=== PATIENT | female | born 1940 | race Caucasian/White ===

== ENCOUNTER 2017-01-07 15:22 | Inpatient (IN) | payer MEDICARE ==
[~2017-01-07] VITALS: Ht 165.1 cm; Wt 64.8 kg
[~2017-01-07 15:22] MED LIST: AMLO10TA5 PO; ASPI-653 PO; CALC-794 PO; CLOP75TA14 PO; COR625 PO; FOSD70 PO; HYDR25TA4 PO; LOSA100T29 PO; MULT-1007 PO; NITR0.4T SL; POTA20TA35 PO; RANI-5 PO; SMV40T PO
[2017-01-07 15:28] VITALS: BP 120/68; PULSE 96; RESP 20; O2SAT 97
--- NOTE | 2017-01-07 15:50 | ED.REPORT ---
HPI-General Illness Date of Service Jan 07, 2017 ED Provider: Nixon Feliciano MD A 76 year old female with a history of hyperlipidemia and severe CAD (2011) s/p stent placement presents to the ED with multiple medical complaints most notable for chest pain that began this afternoon. Per patient's family, the patient has been experiencing confusion, unsteady gait, asymmetrical smile, difficulty with speech and dysphasia for an unknown period of time. Patient and her family are difficult historians. The patient presents today with chest pain that began while she was sitting at [facility] but has since resolved. Nitro taken this afternoon provided mild relief for her pain. She is currently endorsing a headache. Patient reportedly takes a calcium supplement daily. Patient denies recent fever, chills, diarrhea, nausea, or vomiting 2011 Angioplasty revealed severe two vessel disease, 99+ stenosis of OM, 70%-80 % distal right coronary artery stenosis, and a normal EF. PTCA and stenting to the tight ostial first obtuse marginal branch lesion were successful. Nursing Notes Stated Complaint: CHEST PAIN, FELL, WEAK Chief Complaint: Chest Pain Nursing Notes Reviewed: Yes Allergies: Coded Allergies: TAPE (Verified Allergy, Severe, RASH,BLISTERS,SKIN PEELING, 01/26/12) codeine (Verified Allergy, Severe, 03/10/09) latex (Verified Allergy, Severe, ELASTIC - RASH, 01/26/12) varenicline tartrate (Verified Allergy, Severe, Hives, 01/26/12) Scheduled Amlodipine (Amlodipine) 10 Mg Tablet 10 MG PO DAILY Aspirin Chew (Aspirin Chew) 81 Mg Chew 81 MG PO DAILY Carvedilol (Carvedilol) 6.25 Mg Tablet 6.25 MG PO BID Clopidogrel (Clopidogrel) 75 Mg Tablet 75 MG PO DAILY Multivitamin (Multi Vitamin Daily) 1 Each Tablet 1 EACH PO DAILY Simvastatin (Simvastatin) 40 Mg Tablet 40 MG PO HS Miscellaneous Medications Calc/D3/Mag/Zn/Litigation Support Analyst/[place] (Calcium 600 mg Plus Vit D Tab) 1 Each Tablet 1 EACH PO Losartan Potassium (Losartan Potassium) 50 Mg Tablet 50 MG PO Nitroglycerin (Nitroglycerin) 0.3 Mg Tab.subl 0.3 MG SL General Time Seen by MD: 15:49 Chief Complaint Chest pain Hx Obtained From: Patient, Other family... Arrived By: Walk-in Sudden in Onset?: No Onset Occurred: 1 - 4 hours ago Symptom Duration: Intermittent Location: : Chest Quality: Painful Radiation: : Does not radiate Severity: Current: Moderate Severity: Maximum: Moderate Associated with: Reports: Chest pain, Off balance, Speech abnormal Pertinent Negative: Pt denies other symptoms Recent Healthcare: No recent doctor visit, No recent hospitalization Past Medical History Past Medical History Notes: Director Clinical Pharmacology: Dr. Ronnie Javier PCP: Dr. Joey Duran Past Medical History Hyperlipidemia Severe CAD Past Surgical History Cardiac stent placement (2011) Smoking History Current Every Day Smoker Social History Other Social History: Good social support, Local resident Ambulatory Status Independent Review of Systems Full Review of Systems Constitutional: Denies: Chills, Fever Cardiovascular: Reports: Chest pain Neurologic: Reports: Confusion, Focal weakness (facial droop ), Headache, Problem walking, Slurred speech, Unable to speak Complete sys rev & neg: except as marked. Physical Exam Vital Signs Vital Signs Date Time Temp Pulse Resp B/P Pulse Ox O2 Delivery O2 Flow Rate FiO2 01/07/17 18:45 36.8 92 20 165/69 95 Nasal Cannula 2 01/07/17 17:31 36.8 95 20 158/76 96 Nasal Cannula 2 01/07/17 15:28 36.6 96 20 120/68 97 Room Air Initial VS: Reviewed Head / Eyes: Atraumatic, Normocephalic, PERRL Neck: Supple, Non-tender, Full range of motion Extremities: Vascular intact, Neuro intact, No swelling, No tenderness Skin: Warm, Dry, No cyanosis Psychiatric: Mood/affect normal, Behavior normal, Normal thought content General/Constitutional: Awake, Alert, No acute distress Head / Eyes: Atraumatic, Normocephalic, PERRL Respiratory / Chest: Atraumatic, Breath sounds NL, Breath sounds = bilat, No respiratory distress Cardiovascular: Heart rate NL, Regular rhythm, No gallop, No rubs Heart Sounds / Murmur: Positive: Systolic murmur present.. (II/ - Right upper sternal border) Abdomen: Atraumatic, Soft, Non-tender, No guarding, No rebound, BS normoactive Neurologic: Oriented X3, No motor deficits, No sensory deficits, Reflexes equal bilat, Cerebellar NL No pronator drift Left facial asymmetry No difficulty with lower extremity elevation Interpretation & Diagnostics Lab Results Interpretation Result Diagram: 01/07/17 1610 01/07/17 1855 Test 01/07/17 16:10 White Blood Count 12.0th/mm3 (3.8-10.1) Red Blood Count 4.57mil/mm3 (3.90-5.20) Hemoglobin 13.7g/dL (12.0-15.6) Hematocrit 39.3% (35.0-46.0) Mean Corpuscular Volume 86.0fL (81-100) Mean Corpuscular Hemoglobin 30.0pg (27.0-35.0) Mean Corpuscular Hemoglobin Concent 34.9% (32.0-37.0) Red Cell Distribution Width 13.8% (12.3-15.4) Platelet Count 250bil/L (150-400) Neutrophils (%) (Auto) 79.6% (40-74) Lymphocytes (%) (Auto) 10.6% (14-46) Monocytes (%) (Auto) 9.0% (4-12) Eosinophils (%) (Auto) 0.4% (0-5) Basophils (%) (Auto) 0.2% (0-3) Blood Urea Nitrogen 23mg/dL (8-27) Creatinine 1.12mg/dL (0.57-1.00) Estimat Glomerular Filtration Rate 67mL/min (>59) Glucose Level 155mg/dL (60-99) Calcium Level 15.0mg/dL (8.5-10.1) Total Bilirubin 0.4mg/dL (0.0-1.2) Aspartate Amino Transf (AST/SGOT) 24U/L (0-50) Alanine Aminotransferase (ALT/SGPT) 12U/L (0-32) Alkaline Phosphatase 62U/L (25-165) Troponin T < 0.010ug/L (0.0-0.011) Total Protein 7.5g/dL (6.4-8.4) ECG Interpretation ECG Interpretation: Normal Sinus Rhythm Rate 89 bpm Multiple ventricular complexes Q waves in lead 3 ST elevation in 2 and 3 AVF without reciprocal changes Time: 16:06 Interpreted by: ED physician X-Ray Chest Interpretation Chest Xray Interpretation: IMPRESSION: Right basilar infiltrate may be secondary to pneumonitis and pneumonia. Dictated by: Delia Rosario M.D. on 01/07/2017 at 17:10 Interpretation / Wet Read by: Interpret - Radiologist CT Head Interpretation IMPRESSION: 1. No acute intracranial abnormalities. 2. Cerebral volume loss and chronic microvascular ischemic changes. Dictated by: Delia Rosario M.D. on 01/07/2017 at 16:51 Study: Head CT no contrast Interpretation / Wet Read by: Interpret - Radiologist Re-Eval/Medical Decision Med Decision/Clinical Course 68-year-old female presenting with some confusion and ill-defined weakness possibly chest pain. As an unexpected finding of critical hypercalcemia as well as a low magnesium and potassium. Was given a liter of saline in the emergency Department we also started with 2 g of magnesium and 20 meq of potassium. I will it on telemetry, she will be admitted to the hospitalist service. Time of Eval: 17:08 Re-Evaluation/Progress Note: Patient reports that she is currently feeling fatigued. Code status is discussed with the patient. She would like to be Full Code. Time of Eval: 17:20 Patient Status: Condition improved Re-Evaluation/Progress Note: Symptoms have improved upon She is informed of her current results and the intended treatment plan. All questions are addressed. She understands and agrees with the plan. Consultation : Referral / Consult Name: Ashwini Trammell MD Consulted With: Hospitalist Call Returned at: 17:28 Title Search Manager: Will see patient, Agrees with eval, Agrees with plan, Accepts admit Counseled Regarding: Diagnosis, Lab results, Need for admission Discharge & Departure Primary Impression: Hypercalcemia Additional Impressions: Hypomagnesemia Hypokalemia Disposition: ADMITTED TO HOSPITAL Discharge Condition All VS Reviewed: Yes Condition: Stable Referrals: Joey Duran DO (PCP) Ronnie Eaton MD Scribe Attestation Portions of this note were transcribed by Inez Carrero. I, Dr. Feliciano, personally performed the history, physical exam and medical decision-making; I reviewed and confirmed the accuracy of the information in the transcribed note. Signed by: Inez Carrero, 01/07/17. copies to: Ronnie Eaton MD; Joey Duran Donald L MD Jan 07, 2017 15:50 INEZ CARRERO Jan 07, 2017 15:55 Hypomagnesemia Disposition: ADMITTED TO HOSPITAL Discharge Condition All VS Reviewed: Yes Condition: Stable Referrals: Joey Duran DO (PCP) Ronnie Eaton MD Scribe Attestation Portions of this note were transcribed by Inez Carrero. I, Dr. Feliciano, personally performed the history, physical exam and medical decision-making; I reviewed and confirmed the accuracy of the information in the transcribed note. Signed by: Inez Carrero, 01/07/17. copies to: Ronnie Eaton MD; Joey Duran Donald L MD Jan 07, 2017 15:50 INEZ CARRERO Jan 07, 2017 15:55
[2017-01-07 16:16] LABS: BASOPHILS % (AUTO) 0.2 % (0-3); EOSINOPHILS % (AUTO) 0.4 % (0-5); NEUTROPHILS % (AUTO) 79.6 % (40-74); Platelet Count 250 bil/L (150-400)
[2017-01-07 16:48] LABS: TROPONIN T < 0.010 ug/L (0.0-0.011)
--- NOTE | 2017-01-07 16:51 | DRSVH ---
PROCEDURE: CT BRAIN WITHOUT CONTRAST ([id number]) INDICATIONS: confusion and L facial droop TECHNIQUE: Noncontrast 4.5 mm thick angled axial sections acquired from the foramen magnum to the vertex, with c oronal reformats. COMPARISON: None. FINDINGS: Image quality: Excellent. CSF spaces: Basal cisterns are patent. No extra-axial fluid collections. The ventricles are symmet isabell in size and shape. Brain: No intracranial bleeds or masses. There is cerebral volume loss for age, with resultant vent ricular and sulcal prominence. There are periventricular and deep white matter chronic small vessel ischemic changes. There is intracranial internal carotid artery atherosclerosis. Skull and face: Calvarium and visualized facial bones appear intact, without suspicious lesions. Sinuses: Visualized sinuses and mastoids are clear. IMPRESSION: 1. No acute intracranial abnormalities. 2. Cerebral volume loss and chronic microvascular ischemic changes. Dictated by: Delia Rosario M.D. on 01/07/2017 at 16:51 Transcribed by: LAITH on 01/07/2017 at 16:51 Approved by: Delia Rosario M.D. on 01/07/2017 at 16:56
[2017-01-07 16:59] LABS: Magnesium 1.1 mg/dL (1.6-2.6)
--- NOTE | 2017-01-07 17:12 | DRSVH ---
PROCEDURE: X-RAY CHEST ONE VIEW, PORTABLE ([id number]) INDICATIONS: chest pain TECHNIQUE: One view of the chest was acquired. COMPARISON: [facility], CR, CHEST 2VW, 12/29/2011, 12:32. FINDINGS: Surgical changes and devices: Surgical clips in the right breast. Lungs and pleura: Right basilar infiltrate. Mild interstitial prominence. No pleural effusions or pn eumothorax. Mediastinum: Mediastinal contours appear normal. Heart size is normal. Atherosclerotic calcificati on noted. Bones and chest wall: No suspicious bony lesions. Overlying soft tissues appear unremarkable. IMPRESSION: Right basilar infiltrate may be secondary to pneumonitis and pneumonia. Dictated by: Delia Rosario M.D. on 01/07/2017 at 17:10 Approved by: Delia Rosario M.D. on 01/07/2017 at 17:11
[2017-01-07] MEDS ORDERED: KCl 40 mEq/D5W 500 mL 40 MEQ in IV Premix 1 EACH IV ONE ×2 (17:15→22:00)
[2017-01-07] MEDS ORDERED: Magnesium Sulf 2 Gm/50mL Water 2 GM in IV Premix 1 EACH IV ONE (17:15)
[2017-01-07] MEDS ORDERED: 0.9% Sodium Chloride 1,000 ML IV ONE (17:15)
[2017-01-07] MEDS ORDERED: Furosemide 10 mg/mL 2 mL Inj IVPUSH ONE (17:20)
[2017-01-07 17:31] VITALS: BP 158/76; PULSE 95; RESP 20; O2SAT 96
[2017-01-07] MEDS ORDERED: Magnesium Sulf 4 Gm/100 mL H2O 4 GM in IV Premix 1 EACH IV ONE (18:00)
[2017-01-07] MEDS ORDERED: Calcitonin 200 unit/mL 2mL Inj IM SCH ×2 (18:00→20:30)
[2017-01-07] MEDS ORDERED: Polyethylene Glycol (PEG) 17 Gm Powder PO PRN (18:00)
[2017-01-07] MEDS ORDERED: Alum-Mag Hydrox-Simeth 30 mL Suspension PO PRN (18:00)
[2017-01-07] MEDS ORDERED: Potassium Chloride 20 mEq SR Tablet PO ONE (18:00)
[2017-01-07] MEDS ORDERED: Zoledronic Acid 4 mg/5 mL Inj 4 MG in 0.9% Sodium Chloride 100 ML IV ONE (18:00)
[2017-01-07] MEDS ORDERED: NITR0.3T6 SL (18:07)
[2017-01-07] MEDS ORDERED: CARV6.252 PO (18:07)
[2017-01-07] MEDS ORDERED: CALC-777 PO (18:07)
[2017-01-07] MEDS ORDERED: LOSA50TA37 PO (18:07)
[2017-01-07] MEDS ORDERED: AMLO10TA3 PO (18:07)
[2017-01-07] MEDS ORDERED: SIMV40TA5 PO (18:07)
[2017-01-07] MEDS ORDERED: CLOP75TA28 PO (18:07)
[2017-01-07] MEDS ORDERED: MULT-1018 PO (18:07)
[2017-01-07] MEDS ORDERED: ASPI81TA3 PO (18:07)
--- NOTE | 2017-01-07 18:29 | PCM.HPMED ---
Subjective Date of Service Jan 07, 2017 Primary Provider: Admitting Physician: Primary Care Physician: Joey Duran DO Attending Physician: Admit Status: From the Emergency Department, Full Admit, [facility] Telemetry Chief Complaint: Weakness History of Present Illness: This is a 76-year-old female with a history of hyperlipidemia history of coronary artery disease status post stent placement 2011 who presents with increasing weakness and more lethargic and confused. This started approximately 4 days ago. I note her calcium was elevated to 15.2 magnesium level was 1.1 and her potassium was noted to be 2.8. Patient notes no prior history of electrolyte disturbances. Patient is not sure what her medications are. 2 family members are at bedside and do not now. Patient lives with her disabled son and helps take care of him. Patient also related to ER doctor chest pain. Given her history of that when I question her. She also had nausea vomiting which started earlier today. She denies any abdominal pain. Denies any diarrhea or constipation. Review of Systems: Denies any fevers chills denies cough. All other review of systems are reviewed and are negative except for as in history of present illness. Allergies Coded Allergies: TAPE (Verified Allergy, Severe, RASH,BLISTERS,SKIN PEELING, 01/26/12) codeine (Verified Allergy, Severe, 03/10/09) latex (Verified Allergy, Severe, ELASTIC - RASH, 01/26/12) varenicline tartrate (Verified Allergy, Severe, Hives, 01/26/12) Home Medications Med reconciliation is pending at the time of this dictation [facility] History of coronary artery disease with PCI of the ostium of the first obtuse marginal artery done in 2011. On cardiac catheterization at that time was a 7080% distal right coronary artery stenosis which was not stented at that time. Echocardiogram done March 2016 revealed mild concentric LVH. Left ventricular systolic function was normal without focal wall motion abnormalities. Ejection fraction was estimated to be 6065%. Mitral valve leaflets were moderately calcified. One-day pharmacological stress test done was that March 2016 which revealed normal myocardial perfusion study with resting LV ejection fraction of 77%. -Tobacco abuse -History of hypertension Family History Significant for coronary artery disease Social History Hx Alcohol Use: No Hx Substance Use: No Smoking Status: Current Every Day Smoker Living Arrangement: with Family Exam Vital Signs Vital Sign - Last Date Time Temp Pulse Resp B/P Pulse Ox O2 Delivery O2 Flow Rate FiO2 01/07/17 17:31 36.8 95 20 158/76 96 Nasal Cannula 2 Exam Constitutional: Elderly woman who is in no acute distress Head: Normocephalic atraumatic Mouth: No lesions Neck: Carotids 2+ over 4 without bruits Chest: Crackles at her right base Heart: Regular rate and rhythm S1-S2 with 2/6 systolic ejection murmur Abdomen: Soft nontender bowel sounds present Extremities: No pedal edema Skin: No rashes Psych: Mood and affect are appropriate Neuro: Alert and oriented 3, motor strength is intact bilaterally Lab and Diagnostics Labs Laboratory Tests 72 Hours Test 01/07/17 16:10 White Blood Count 12.0th/mm3 (3.8-10.1) Red Blood Count 4.57mil/mm3 (3.90-5.20) Hemoglobin 13.7g/dL (12.0-15.6) Hematocrit 39.3% (35.0-46.0) Mean Corpuscular Volume 86.0fL (81-100) Mean Corpuscular Hemoglobin 30.0pg (27.0-35.0) Mean Corpuscular Hemoglobin Concent 34.9% (32.0-37.0) Red Cell Distribution Width 13.8% (12.3-15.4) Platelet Count 250bil/L (150-400) Neutrophils (%) (Auto) 79.6% (40-74) Lymphocytes (%) (Auto) 10.6% (14-46) Monocytes (%) (Auto) 9.0% (4-12) Eosinophils (%) (Auto) 0.4% (0-5) Basophils (%) (Auto) 0.2% (0-3) Sodium Level 137mEq/L (134-144) Potassium Level 2.8mEq/L (3.5-5.2) Chloride Level 91mEq/L (97-108) Carbon Dioxide Level 31mmol/L (18-29) Blood Urea Nitrogen 23mg/dL (8-27) Creatinine 1.12mg/dL (0.57-1.00) Estimat Glomerular Filtration Rate 67mL/min (>59) Glucose Level 155mg/dL (60-99) Calcium Level 15.2mg/dL (8.5-10.1) Magnesium Level 1.1mg/dL (1.6-2.6) Total Bilirubin 0.4mg/dL (0.0-1.2) Aspartate Amino Transf (AST/SGOT) 24U/L (0-50) Alanine Aminotransferase (ALT/SGPT) 12U/L (0-32) Alkaline Phosphatase 62U/L (25-165) Troponin T < 0.010ug/L (0.0-0.011) Total Protein 7.5g/dL (6.4-8.4) Albumin 3.7g/dL (3.4-5.0) Result Diagram: 01/07/17 1610 01/07/17 1610 X-Rays, CTs and MRIs PROCEDURE: X-RAY CHEST ONE VIEW, PORTABLE ([id number]) INDICATIONS: chest pain TECHNIQUE: One view of the chest was acquired. COMPARISON: [facility], , CHEST 2VW, 12/29/2011, 12:32. FINDINGS: Surgical changes and devices: Surgical clips in the right breast. Lungs and pleura: Right basilar infiltrate. Mild interstitial prominence. No pleural effusions or pneumothorax. Mediastinum: Mediastinal contours appear normal. Heart size is normal. Atherosclerotic calcification noted. Bones and chest wall: No suspicious bony lesions. Overlying soft tissues appear unremarkable. IMPRESSION: Right basilar infiltrate may be secondary to pneumonitis and pneumonia. Dictated by: Delia Rosario M.D. on 01/07/2017 at 17:10 Approved by: Delia Rosario M.D. on 01/07/2017 at 17:11 PROCEDURE: CT BRAIN WITHOUT CONTRAST ([id number]) INDICATIONS: confusion and L facial droop TECHNIQUE: Noncontrast 4.5 mm thick angled axial sections acquired from the foramen magnum to the vertex, with coronal reformats. COMPARISON: None. FINDINGS: Image quality: Excellent. CSF spaces: Basal cisterns are patent. No extra-axial fluid collections. The ventricles are symmetric in size and shape. Brain: No intracranial bleeds or masses. There is cerebral volume loss for age , with resultant ventricular and sulcal prominence. There are periventricular and deep white matter chronic small vessel ischemic changes. There is intracranial internal carotid artery atherosclerosis. Skull and face: Calvarium and visualized facial bones appear intact, without suspicious lesions. Sinuses: Visualized sinuses and mastoids are clear. IMPRESSION: 1. No acute intracranial abnormalities. 2. Cerebral volume loss and chronic microvascular ischemic changes. Dictated by: Delia Rosario M.D. on 01/07/2017 at 16:51 Transcribed by: LAITH on 01/07/2017 at 16:51 Approved by: Delia Rosario M.D. on 01/07/2017 at 16:56 12-lead ECG Sinus at rate of 89 with multiple PVCs noted QTC is 449 with a NV of 201 Assessment & Plan #Hypercalcemia, acute, present on admission -We will go ahead and get stat repeat calcium level to make sure this initial was correct -If correct his severe hypercalcemia and will treat with IV fluid normal saline , IM calcitonin, and IV bisphosphonate -We will also check intact PTH level, TSH level, vitamin D(1, 25 hydroxy, 25- hydroxy) along with SPEP -Check every 6 hours levels # Hypokalemia, acute, present on admission -We will replete with oral potassium -As mentioned above for calcium will go ahead and repeat stat level -Repeat level in 6 hours #Hypomagnesemia, acute, present on admission -Replete with IV magnesium sulfate -Also get stat repeat level to make sure that this was accurate #Right basilar pneumonia, acute, present on admission -Placed on IV Levaquin -Respiratory PCR -Check sputum studies -Check CT of chest without contrast to evaluate for possible malignancy versus pneumonia #Coronary artery disease, chronic, present on admission -Stable #History of hypertension,Present on admission -We will need to get her meds reconciliation completed -We will monitor blood pressures #DVT prophylaxis -Subcutaneous Lovenox and SCDs #CODE STATUS -Was discussed by DANIE Fung with patient and wishes full code GI Prophylaxis: Not indicated VTE Prophylaxis: Sub-Q Enoxaparin, SCDs Resuscitation Status: CPR: Attempt Resuscitation Time spent 60 minutes Ashwini Trammell MD Jan 07, 2017 18:28
[2017-01-07] MEDS ORDERED: levoFLOXacin Inj 750 MG in IV Premix 1 EACH IV SCH (18:31)
[2017-01-07 18:45] VITALS: BP 165/69; PULSE 92; RESP 20; O2SAT 95
--- NOTE | 2017-01-07 19:13 | DRSVH ---
PROCEDURE: CT CHEST WITHOUT CONTRAST ([id number]) INDICATIONS: 76 year-old woman with pneumonia,hypercalcemia TECHNIQUE: Noncontrast 5 mm thick sections acquired from the pulmonary apices to the posterior costophrenic angl es. 7 mm thick coronal and sagittal MIP reformats were then acquired. For radiation dose reduction, the following was used: automated exposure control, adjustment of mA and/or kV according to patient size. COMPARISON: [facility], CR, XR CHEST 1VW (PORTABLE), 01/07/2017, 15:57. FINDINGS: Image quality: Excellent. Lungs and pleura: A 5 mm spiculated density in the right apex is probably apical scarring. There are bibasilar dependent atelectasis. No acute air space opacities. No pleural effusions or pneumothorax . Central and peripheral airways are patent and normal in caliber. Mediastinum: Heart size is normal. No pericardial effusion. Severe aorta and coronary calcificatio n. There is a 1 cm precarinal lymph node. Thoracic aorta and central pulmonary arteries are normal i n size. Esophagus is normal in caliber. No hiatal hernia. Bones and chest wall: Multiple surgical clips in the right .No suspicious bony lesions. No vertebra l body compression fractures. No axillary or supraclavicular adenopathy by size criteria. Thyroid g land is is normal. Abdomen: Nonobstructive renal calculi bilaterally. Visualized upper abdominal solid organs and bowel loops appear normal in the absence of contrast. IMPRESSION: 1. Bibasilar atelectasis. 2. A 5 mm spiculated nodule in the right apex is most likely secondary to apical scarring. 3. A mildly enlarged mediastinal lymph node, which is nonspecific and may be reactive. 4. Severe coronary and aortic atherosclerosis. 5. Bilateral nonoperative renal calculi. Dictated by: Delia Rosario M.D. on 01/07/2017 at 19:01 Approved by: Delia Rosario M.D. on 01/07/2017 at 19:11
[2017-01-07 19:30] VITALS: BP 190/84; PULSE 88; RESP 16; O2SAT 95
[2017-01-07 19:31] LABS: Magnesium 2.2 mg/dL (1.6-2.6)
[2017-01-07] MEDS: 0.9% Sodium Chloride 1,000 ML IV SCH (19:56)
[2017-01-07] MEDS: Ondansetron 2 mg/mL 2 mL Inj IVPUSH PRN (20:25)
[2017-01-07 20:58] LABS: APPEARANCE,URINE CLEAR (CLEAR,HAZY); COLOR,URINE YELLOW (YELLOW)
[2017-01-07 20:59] LABS: OCCULT BLOOD,URINE NEGATIVE (NEGATIVE); UROBILINOGEN,URINE NORMAL (NORMAL)
[2017-01-07] MEDS ORDERED: KCl 40 mEq/500 mL D5W (Peripheral Line) IV ONE ×2 (22:00)
[2017-01-07 23:15] VITALS: BP 176/72; PULSE 97; RESP 19; O2SAT 97
[2017-01-08] VITALS (8 sets, daily range): BP systolic 159–196; BP diastolic 65–82; PULSE 83–92; RESP 16–19; O2SAT 95–99
[2017-01-08 00:46] LABS: Magnesium 1.5 mg/dL (1.6-2.6)
[2017-01-08] MEDS: 0.9% Sodium Chloride 1,000 ML IV SCH ×3 (01:30→09:11)
[2017-01-08] MEDS: Ondansetron 2 mg/mL 2 mL Inj IVPUSH PRN (02:29)
[2017-01-08 03:14] LABS: Mean Corpuscular Hemoglobin 30.1 pg (27.0-35.0); Mean Corpuscular Volume 86.9 fL (81-100)
[2017-01-08 03:15] LABS: BASOPHILS % (AUTO) 0.1 % (0-3); EOSINOPHILS % (AUTO) 0.1 % (0-5); MONOCYTES % (AUTO) 7.1 % (4-12); NEUTROPHILS % (AUTO) 85.3 % (40-74); Platelet Count 209 bil/L (150-400)
[2017-01-08 04:03] LABS: Magnesium 1.4 mg/dL (1.6-2.6); Phosphorus 2.9 mg/dL (2.5-4.9)
[2017-01-08] MEDS ORDERED: KCl 40 mEq/500 mL D5W(K 3 - 3.7 & Creat < 2) IV ONE (04:50)
[2017-01-08] MEDS ORDERED: Mag Sulf 4 Gm/100 mL IV Premix (Mag < 1.6 & Creat < 2) IV ONE (04:50)
--- NOTE | 2017-01-08 06:22 | NUR ---
P) Admit Pt. admitted to P[facility] room 2030 at approx. 1900 last night, she is alert, and though many verbal responses are delayed, they are appropriate, she has a slight R facial droop and a bit of tongue deviation, lungs with coarse breath sounds and crackles in the R base, bowel tones are positive, last stool 2-3 days ago. Cardiac rhythm sinus with no ectopy. Pt. c/o sneezing since arrival in hospital, SPO2 in mid to upper 90's on 2L N/C. I) Meds per 's orders, multiple electrolyte riders to try to normalize electrolytes. E) Resting quietly, does have significant nausea and vomiting, giving zofran regularly which seems to be helping.
--- NOTE | 2017-01-08 10:14 | NUR ---
Evaluation completed. Please go to "Notes" then click on "Assessments and Notes" (bottom left corner of screen). Then select appropriate discipline tab on top of screen.
[2017-01-08] MEDS: Calcitonin 200 unit/mL 2mL Inj IM SCH ×2 (10:32→22:48)
[2017-01-08 11:29] LABS: Magnesium 2.5 mg/dL (1.6-2.6)
[2017-01-08] MEDS ORDERED: Magnesium Sulf 4 Gm/100 mL H2O 4 GM in IV Premix 1 EACH IV ONE (12:10)
[2017-01-08] MEDS ORDERED: Potassium Chloride 20 mEq SR Tablet PO ONE (12:10)
[2017-01-08] MEDS: Potassium Chloride 20 mEq SR Tablet PO SCH ×4 (12:30→20:05)
[2017-01-08] MEDS: oxyCODONE-Acetamin 5-325 mg Tablet PO PRN ×2 (14:46→20:06)
--- NOTE | 2017-01-08 15:21 | DRSVH ---
PROCEDURE: X-RAY RIGHT SHOULDER, MINIMUM TWO VIEWS ([id number]) INDICATIONS: pain TECHNIQUE: 3 views of the shoulder were acquired. COMPARISON: None. FINDINGS: Bones: No acute fractures or dislocations. Normal right shoulder alignment. Mild glenohumeral and acr omion clavicular joint degenerative change. Osteopenia. Soft tissues: No suspicious soft tissue calcifications. IMPRESSION: No acute fractures or dislocations. Dictated by: Donal Kilgore M.D. on 01/08/2017 at 15:09 Approved by: Donal Kilgore M.D. on 01/08/2017 at 15:19
--- NOTE | 2017-01-08 16:25 | PCM.PNMED ---
Subjective Date of Service Jan 08, 2017 Subjective She remains hypertensive throughout the today, regular rate, afebrile, saturating well on 2 L nasal cannula. White count is trended up slightly, magnesium was normalized, calcium slowly trending down. Potassium 3.4 today. Her only complaint today is a persistent right shoulder pain on movement and palpation to what pain medication is not adequately controlling her symptoms. Exam Vital Signs Vital Sign - Last Date Time Temp Pulse Resp B/P Pulse Ox O2 Delivery O2 Flow Rate FiO2 01/08/17 06:12 92 01/08/17 03:09 36.7 19 176/70 97 Nasal Cannula 2.00 Intake and Output 01/07/17 01/07/17 01/08/17 Cumulative From/Thru 15:00 23:00 07:00 01/07/17 17:31 - 01/08/17 05:54 Intake Total 1000 ml 2950 ml 3950 ml Output Total 1900 ml 1900 ml Balance 1000 ml 1050 ml 2050 ml Intake Oral 0 ml 0 ml IV Total 1000 ml 2950 ml 3950 ml Output Urine Total 1600 ml 1600 ml Emesis 300 ml 300 ml # Bowel Movements 0 0 Exam General: Awake, alert, lying in hospital bed in no acute distress, well- developed, well-nourished, appropriately interactive HEENT: Normocephalic, atraumatic. External ears without defect. Pupils equal, round, and reactive to light and accommodation. Anicteric sclerae, moist conjunctivae, and no lid lag. Oropharynx free of erythema and cobble stoning with moist mucosa. Neck: Supple with full range of motion. No jugular venous distension. No bruits. No lymphadenopathy or thyromegaly. Cardiovascular: Regular rate and rhythm. Soft ejection murmur II/ Pulmonary: Diminished lung sounds. Difficult to appreciate posterior lung pena secondary to patient pain on movement. Slight expiratory crackles, right greater than left. Normal respiratory effort with no use of accessory muscles. Abdomen: Bowel tones present. Soft, nontender, nondistended. Extremities: No clubbing, cyanosis, edema Skin: Normal temperature, turgor, and texture Neurological: Cranial nerves grossly intact. Psychiatric: Normal mood and affect. Alert and oriented to person, place, and time. IVs and Medications Medications Reviewed: Medications were reviewed in detail Lab and Diagnostics Result Diagram: 01/08/17 03001/08/17 0303 X-Rays, CTs and MRIs . X-RAY CHEST ONE VIEW, PORTABLE IMPRESSION: Right basilar infiltrate may be secondary to pneumonitis and pneumonia. Dictated by: Delia Rosario M.D. on 01/07/2017 CT BRAIN WITHOUT CONTRAST IMPRESSION: 1. No acute intracranial abnormalities. 2. Cerebral volume loss and chronic microvascular ischemic changes. Dictated by: Delia Rosario M.D. on 01/07/2017 CT CHEST WITHOUT CONTRAST IMPRESSION: 1. Bibasilar atelectasis. 2. A 5 mm spiculated nodule in the right apex is most likely secondary to apical scarring. 3. A mildly enlarged mediastinal lymph node, which is nonspecific and may be reactive. 4. Severe coronary and aortic atherosclerosis. 5. Bilateral nonoperative renal calculi. Dictated by: Delia Rosario M.D. on 01/07/2017 X-RAY RIGHT SHOULDER, MINIMUM TWO VIEWS IMPRESSION: No acute fractures or dislocations. Dictated by: Donal Kilgore M.D. on 01/08/2017 12-lead ECG Sinus at rate of 89 with multiple PVCs noted QTC is 449 with a [place] of 201 Assessment & Plan Hypercalcemia, acute, present on admission -Repeat calcium level show slight downward trend -Continue IV fluid normal saline 150 ml/hr -IM calcitonin, 200 units IM every 122 doses -IV bisphosphonate -PTH level low, -TSH level pending -Vitamin D(1, 25 hydroxy, 25-hydroxy) along with SPEP pending -Continue to monitor Hypokalemia, acute, present on admission -Potassium, magnesium replacement protocol -Continue to monitor Hypomagnesemia, acute, present on admission -Replacement as above -Repeat lab has normalized Possible Right basilar pneumonia, acute, present on admission CXR showed Right basilar infiltrate may be secondary to pneumonitis and pneumonia. -Placed on IV Levaquin -CT as above -Appropriate cultures and serologies pending Coronary artery disease, chronic, present on admission -Continue clopidogrel History of hypertension,Present on admission -Continue carvedilol -Continue losartan -Continue amlodipine #DVT prophylaxis -Subcutaneous Lovenox and SCDs #CODE STATUS -Was discussed by DANIE Fung with patient and wishes full code Patient Status: Patient was admitted under inpatient status with expected length of stay greater than two midnights due to severity of presenting symptoms , risk of adverse event, and complexity of treatment plan. GI Prophylaxis: Not indicated VTE Prophylaxis: Sub-Q Enoxaparin, SCDs Resuscitation Status: CPR: Attempt Resuscitation Time spent 30 minutes Attending Statement Patient has been seen and examined by myself with electromedical equipment technician and agree with above history, physical, assessment and plan. AURELIA MCCONNELL DO Jan 08, 2017 08:02 Ashwini Trammell MD Jan 09, 2017 07:00
[2017-01-08 17:42] LABS: Magnesium 2.3 mg/dL (1.6-2.6)
[2017-01-08] MEDS ORDERED: NORT25CA PO (18:19)
[2017-01-08] MEDS ORDERED: TRAM50TA2 PO (18:24)
[2017-01-08] MEDS ORDERED: HYG25 PO (18:26)
[2017-01-08] MEDS ORDERED: LIP40 PO (18:29)
--- NOTE | 2017-01-08 19:01 | NUR ---
Potassium/emesis/ambulation/pain K+ IV was hanging this morning upon arrival. Once speech therapy cleared pt for PO, pt able tp take pills. Upon next K+ result, I Gave 40meq of K+ PO per K/Mg protocol. At next draw K+ dropped to 1.9. Another 40meq given PO. Orders for night nurse to give another 40 at 1930 and then re-draw labs at 2130. Night RN aware. Pt did initially have difficulty swallowing potassium pill, resulting in 150cc of emesis. Pt prefers taking the large K+ pills in applesauce, night RN aware. Pt did ambulate X2 this shift to the [facility]. Very weak and shaky but able to do with 1+ assist. C/O 10/10 R shoulder pain secondary to bursitis and a recent fall. I initially gave APAP which was not effective. We then gave tramadol since this is what the pt takes at home and this was also not effective. Percocet was given and that was effective. The pt got some rest and appears comfortable.
[2017-01-08 22:03] LABS: Magnesium 2.5 mg/dL (1.6-2.6)
[2017-01-09] VITALS (9 sets, daily range): BP systolic 135–166; BP diastolic 61–70; PULSE 68–86; RESP 16–20; O2SAT 94–98
[2017-01-09] MEDS: 0.9% Sodium Chloride 1,000 ML IV SCH ×4 (01:33→22:26)
[2017-01-09 03:28] LABS: Mean Corpuscular Hemoglobin 30.1 pg (27.0-35.0); Mean Corpuscular Volume 88.2 fL (81-100); Platelet Count 200 bil/L (150-400)
[2017-01-09 03:44] LABS: BASOPHILS % (AUTO) 0 % (0-3); EOSINOPHILS % (AUTO) 0 % (0-5); MONOCYTES % (AUTO) 5 % (4-12); NEUTROPHILS % (AUTO) 89 % (40-74)
--- NOTE | 2017-01-09 07:34 | NUR ---
Pain/Rest A/O, up to bsc with generalized weakness. Indicates 8-9/10 pain in R shoulder, medication given with good response. Rested with eyes closed for extended period. Received final dose of K+ repletion, with lab final lab resulted at 3.6 . IV painful and s/s of infiltration, restarted in L FA, patent to flush. Indicates no further needs. VSS. Tele: SR 80's. Report given to on coming RN.
[2017-01-09] MEDS: oxyCODONE-Acetamin 5-325 mg Tablet PO PRN (08:33)
--- NOTE | 2017-01-09 15:29 | DRSVH ---
PROCEDURE: X-RAY CHEST, TWO VIEWS ([id number]) INDICATIONS: leukocytosis TECHNIQUE: 2 views of the chest were acquired. COMPARISON: [facility], CT, CT CHEST WO CON, 01/07/2017, 18:34. [facility], CR, XR CHEST 1VW (PORTABLE), 01/07/2017, 15:57. [facility], CR, CHEST 2VW, 12/29/2011, 12: 32. FINDINGS: Surgical changes and devices: Surgical clips above the right breast. Lungs and pleura: No pleural effusions or pneumothorax. Lungs are clear, aside from left basilar ai rspace opacity. Scar at right lung base unchanged. Mediastinum: Mediastinal contours are normal. Heart size is normal. Bones and chest wall: No suspicious bony abnormalities. Soft tissues appear unremarkable. IMPRESSION: Left basilar airspace opacity suspicious for developing aspiration or pneumonia. Dictated by: Sd HARVEY Interpreted: Lane Moseley MD on 01/09/2017 at 13:46 Approved by: Kamran Moseley M.D. on 01/09/2017 at 15:27
--- NOTE | 2017-01-09 15:36 | PCM.PNMED ---
Subjective Date of Service Jan 09, 2017 Subjective Potassium magnesium replacement protocol continues requiring supplementation throughout the evening. Still complains of right shoulder pain secondary to bursitis and recent fall. Pain medication has been mostly effective though she states it is making her too groggy. Able to rest throughout the evening. White count continues to trend up, last potassium magnesium values normal. Calcium is still elevated at 10.7. Exam Vital Signs Vital Sign - Last Date Time Temp Pulse Resp B/P Pulse Ox O2 Delivery O2 Flow Rate FiO2 01/09/17 13:27 37.0 73 18 144/64 98 Nasal Cannula 2.00 Intake and Output 01/08/17 01/08/17 01/09/17 Cumulative From/Thru 15:00 23:00 07:00 01/07/17 17:31 - 01/09/17 05:37 Intake Total 3175 ml 982 ml 8107 ml Output Total 1525 ml 600 ml 4025 ml Balance 1650 ml 382 ml 4082 ml Intake Oral 625 ml 320 ml 945 ml IV Total 2550 ml 662 ml 7162 ml Output Urine Total 1525 ml 600 ml 3725 ml Emesis 300 ml # Bowel Movements 0 Exam General: Awake, alert, lying in hospital bed in no acute distress, well- developed, well-nourished, appropriately interactive. Multiple family members present at bedside HEENT: Normocephalic, atraumatic. External ears without defect. Pupils equal, round, and reactive to light and accommodation. Anicteric sclerae, moist conjunctivae, and no lid lag. Oropharynx free of erythema and cobble stoning with moist mucosa. Neck: Supple with full range of motion. No jugular venous distension. No bruits. No lymphadenopathy or thyromegaly. Cardiovascular: Regular rate and rhythm. Soft ejection murmur II/ Pulmonary: Diminished lung sounds. Expiratory crackles heard bilaterally lower lung pena posteriorly. No use of accessory muscles with normal respiratory effort. Abdomen: Soft, nontender to palpation 4 quadrants. Extremities: No clubbing, cyanosis, edema Skin: Normal temperature, turgor, and texture Neurological: Cranial nerves grossly intact. Psychiatric: Normal mood and affect. Alert and oriented to person, place, and time. IVs and Medications Medications Reviewed: Medications were reviewed in detail Lab and Diagnostics Result Diagram: 01/09/17 0308 01/09/17 0308 X-Rays, CTs and MRIs . X-RAY CHEST ONE VIEW, PORTABLE IMPRESSION: Right basilar infiltrate may be secondary to pneumonitis and pneumonia. Dictated by: Delia Rosario M.D. on 01/07/2017 CT BRAIN WITHOUT CONTRAST IMPRESSION: 1. No acute intracranial abnormalities. 2. Cerebral volume loss and chronic microvascular ischemic changes. Dictated by: Delia Rosario M.D. on 01/07/2017 CT CHEST WITHOUT CONTRAST IMPRESSION: 1. Bibasilar atelectasis. 2. A 5 mm spiculated nodule in the right apex is most likely secondary to apical scarring. 3. A mildly enlarged mediastinal lymph node, which is nonspecific and may be reactive. 4. Severe coronary and aortic atherosclerosis. 5. Bilateral nonoperative renal calculi. Dictated by: Delia Rosario M.D. on 01/07/2017 X-RAY RIGHT SHOULDER, MINIMUM TWO VIEWS IMPRESSION: No acute fractures or dislocations. Dictated by: Donal Kilgore M.D. on 01/08/2017 12-lead ECG Sinus at rate of 89 with multiple PVCs noted QTC is 449 with a [place] of 201 Assessment & Plan Hypercalcemia, acute, present on admission -Corrected calcium today greater than 11 -Continue IV fluid normal saline 150 ml/hr -IM calcitonin, 200 units IM every 12 hr 2 doses -IV bisphosphonate -PTH level low -TSH level pending -Vitamin D(1, 25 hydroxy, 25-hydroxy) along with SPEP pending -PTH related peptide pending -Continue to monitor Hypokalemia, acute, present on admission -Potassium, magnesium replacement protocol -Continue to monitor Hypomagnesemia, acute, present on admission -Replacement as above -Repeat lab has normalized Possible Right basilar pneumonia, acute, present on admission CXR showed Right basilar infiltrate may be secondary to pneumonitis and pneumonia. -Placed on IV Levaquin -CT as above -Appropriate cultures and serologies pending -Pro calcitonin negative -Increased white count today we will check UA and repeat chest x-ray Coronary artery disease, chronic, present on admission -Continue clopidogrel History of hypertension,Present on admission -Continue carvedilol -Continue losartan -Continue amlodipine #DVT prophylaxis -Subcutaneous Lovenox and SCDs #CODE STATUS -Was discussed by DANIE Fung with patient and wishes full code Patient Status: Patient was admitted under inpatient status with expected length of stay greater than two midnights due to severity of presenting symptoms , risk of adverse event, and complexity of treatment plan. GI Prophylaxis: Not indicated VTE Prophylaxis: Sub-Q Enoxaparin, SCDs Resuscitation Status: CPR: Attempt Resuscitation Time spent 30 minutes Attending Statement Patient has been seen and examined by myself with diagnostic medical sonographer and agree with above history, physical, assessment and plan. AURELIA MCCONNELL DO Jan 09, 2017 15:36 Ashwini Trammell MD Jan 09, 2017 18:13
[2017-01-09 16:08] LABS: Vitamin D, 25-Hydroxy 52.4 ng/mL (30.0-100.0)
--- NOTE | 2017-01-09 17:34 | NUR ---
emesis/ambulation/pain Pt had one episode of emesis this morning after taking her pills. This has happened to her a few times since she has been here. There was no nausea preceding the incident. Pt states this could be caused by the applesauce or by taking pills on an empty stomach. Tomorrow we will trial swallowing pills with water only and only after she has had breakfast. Pt has been ambulating [place] [facility] [place]. R shoulder is quite immobile and painful but her other arm is strong. She is quite unsteady but able to pivot to the [facility] with 1+ assist. Percocet has not been very helpful with R shoulder bursitis pain. Pt often falls asleep after taking it and feels that it makes her more sleepy than anything. Shoulder is okay at rest but very painful with movement. aware.
[2017-01-09 22:39] LABS: APPEARANCE,URINE CLEAR (CLEAR,HAZY); COLOR,URINE YELLOW (YELLOW); OCCULT BLOOD,URINE NEGATIVE (NEGATIVE); UROBILINOGEN,URINE NORMAL (NORMAL)
[2017-01-10] VITALS (8 sets, daily range): BP systolic 136–170; BP diastolic 63–73; PULSE 65–88; RESP 16–20; O2SAT 95–98
[2017-01-10 04:18] LABS: BASOPHILS % (AUTO) 0.1 % (0-3); EOSINOPHILS % (AUTO) 0.9 % (0-5); MONOCYTES % (AUTO) 10.2 % (4-12); Mean Corpuscular Hemoglobin 30.1 pg (27.0-35.0); Mean Corpuscular Volume 89.6 fL (81-100); Platelet Count 167 bil/L (150-400)
[2017-01-10] MEDS: 0.9% Sodium Chloride 1,000 ML IV SCH ×3 (04:38→20:56)
[2017-01-10 05:09] LABS: T3 Uptake 31 % (24-39); Thyroxine (T4) 9.8 ug/dL (4.5-12.0)
[2017-01-10] MEDS ORDERED: Potassium Chloride 20 mEq SR Tablet PO ONE (08:25)
--- NOTE | 2017-01-10 11:22 | NUR ---
Social Work: Initial Assessment/Multidisciplinary Rounds D: Per EMR review, pt is a 76 year old female admitted for hypercalemia. Pt is [facility] with Medicare. Pt has no LTC or VA benefits. PCP is Joey Duran DO. NOK is Cande pak, dtr, . Advanced directives not completed- information provided to patient by [employer]. Readmit score is low, 2/8. Pt discussed in Multidisciplinary rounds. Capacity for self care discussed; pt lives at home with her son and is I with ADLs. PT is coming to see the patient today to complete an Eval for d/c recs. Anticipate pt may require HH. [employer] met with patient and daughter at bedside. community arts worker role explained, contact information and discharge planning checklist provided. See initial assessment. Pt states that she lives in [place] with her son. She is I at baseline, owns a cane but rarely uses it. Pt is I with all ADLs and self-care and states she lives in a single-story home with no steps to enter. Pt states that she has never had HH or skilled rehab. [employer] explained the possible discharge services available including HH and SNF. Pt states that "all I know is that I'm going home" and states she will not go to SNF. She is receptive to HH and states that her sister has been using [facility]. [employer] provided HH/SNF CHOICE LIST for review. At this time her preference would be for [facility] if the doctor felt that this was something she needed. She will participate with PT today as she declined yesterdays attempt to eval. A: Pt who lives at home with her son and is I with ADLs P: Evolving; Anticipate pt to discharge home via POV. [employer] to continue to follow to assess for unmet needs and r/o possible HH pending orders from providers. CHELSEA Edwards Addendum: 01/10/17 at 1129 by SHARIFA M HALTERMA SS Amended: Links added.
[2017-01-10] MEDS ORDERED: Magnesium Sulf 4 Gm/100 mL H2O 4 GM in IV Premix 1 EACH IV ONE (16:00)
--- NOTE | 2017-01-10 16:35 | PCM.PNMED ---
Subjective Date of Service Jan 10, 2017 Subjective Per nursing report patient had emesis after taking morning meds, without preceding nausea. Physical therapy was able to work with her today she was able to ambulate well to her 50 feet. The recommendation is discharged with Will Walker. Overall patient feels very good and was hoping to go home today, however electrolyte abnormalities remain persistent and refractory to replacement. She denies any specific pain with the exception of right shoulder , states tramadol will help at night but wishes to have naproxen for daytime pain management. Exam Vital Signs Vital Sign - Last Date Time Temp Pulse Resp B/P Pulse Ox O2 Delivery O2 Flow Rate FiO2 01/10/17 13:29 68 01/10/17 12:14 170/67 98 Nasal Cannula 1.00 01/10/17 08:54 36.5 18 Intake and Output 01/09/17 01/09/17 01/10/17 Cumulative From/Thru 15:00 23:00 07:00 01/07/17 17:31 - 01/10/17 05:25 Intake Total 1505 ml 1671 ml 67202 ml Output Total 600 ml 4625 ml Balance 905 ml 1671 ml 6658 ml Intake Oral 536 ml 1481 ml IV Total 969 ml 1671 ml 9802 ml Output Urine Total 600 ml 4325 ml Emesis 300 ml # Bowel Movements 0 Exam General: Awake, alert, sitting in bedside chair in no acute distress, well- developed, well-nourished, appropriately interactive. HEENT: Normocephalic, atraumatic. Neck: Supple with full range of motion. No jugular venous distension. Cardiovascular: Regular rate and rhythm. Soft ejection murmur II/ Pulmonary: Diminished lung sounds. Expiratory crackles heard bilaterally. Abdomen: Soft, nontender to light palpation 4 quadrants. Patient has some discomfort left lower quadrant on deep palpation. Extremities: No clubbing, cyanosis, edema Skin: Normal temperature, turgor, and texture Neurological: Cranial nerves grossly intact. Psychiatric: Normal mood and affect. Alert and oriented to person, place, and time. IVs and Medications Medications Reviewed: Medications were reviewed in detail Lab and Diagnostics Result Diagram: 01/10/1740401/10/17404 X-Rays, CTs and MRIs . X-RAY CHEST ONE VIEW, PORTABLE IMPRESSION: Right basilar infiltrate may be secondary to pneumonitis and pneumonia. Dictated by: Delia Rosario M.D. on 01/07/2017 CT BRAIN WITHOUT CONTRAST IMPRESSION: 1. No acute intracranial abnormalities. 2. Cerebral volume loss and chronic microvascular ischemic changes. Dictated by: Delia Rosario M.D. on 01/07/2017 CT CHEST WITHOUT CONTRAST IMPRESSION: 1. Bibasilar atelectasis. 2. A 5 mm spiculated nodule in the right apex is most likely secondary to apical scarring. 3. A mildly enlarged mediastinal lymph node, which is nonspecific and may be reactive. 4. Severe coronary and aortic atherosclerosis. 5. Bilateral nonoperative renal calculi. Dictated by: Delia Rosario M.D. on 01/07/2017 X-RAY RIGHT SHOULDER, MINIMUM TWO VIEWS IMPRESSION: No acute fractures or dislocations. Dictated by: Donal Kilgore M.D. on 01/08/2017 X-RAY CHEST, TWO VIEWS IMPRESSION: Left basilar airspace opacity suspicious for developing aspiration or pneumonia. Dictated by: Sd Robin RRA Interpreted: Lane Moseley MD on 01/09/2017 12-lead ECG Sinus at rate of 89 with multiple PVCs noted QTC is 449 with a [place] of 201 Assessment & Plan Ms. Gaitan is a 76-year-old female with a history of hyperlipidemia, coronary artery disease status post stent placement 2011 and tobacco abuse admitted for weakness and lethargy accompanying electrolyte disorders Hypercalcemia, acute, present on admission, ongoing -Corrected calcium remains elevated -Continue IV fluid normal saline 150 ml/hr -Received IM calcitonin, 200 units IM every 12 hr 2 doses -Received IV bisphosphonate -PTH level low -TSH within normal limits -Vitamin D(1, 25 hydroxy, 25-hydroxy) along with SPEP pending -PTHrp pending -Continue to monitor Hypokalemia, acute, present on admission, ongoing -Potassium, magnesium replacement protocol -Continue to monitor Hypomagnesemia, acute, present on admission, ongoing -Replacement as above -Continue to monitor Possible Right basilar pneumonia, acute, present on admission CXR showed Right basilar infiltrate may be secondary to pneumonitis and pneumonia. -Placed on IV Levaquin -CT as above -Appropriate cultures and serologies pending, negative to date -Pro calcitonin negative -White count trending back down -Chest x-ray shows possible developing pneumonia -Continue to monitor Coronary artery disease, chronic, present on admission -Continue clopidogrel History of hypertension,Present on admission -Continue carvedilol -Continue losartan -Continue amlodipine #DVT prophylaxis -Subcutaneous Lovenox and SCDs #CODE STATUS -Was discussed by DANIE Fung with patient and wishes full code Patient Status: Patient was admitted under inpatient status with expected length of stay greater than two midnights due to severity of presenting symptoms , risk of adverse event, and complexity of treatment plan. GI Prophylaxis: Not indicated VTE Prophylaxis: Sub-Q Enoxaparin, SCDs Resuscitation Status: CPR: Attempt Resuscitation Time spent 30 minutes Attending Statement Patient has been seen and examined by myself with medical review coordinator and agree with above history, physical, assessment and plan. AURELIA MCCONNELL DO Jan 10, 2017 16:35 Ashwini Trammell MD Jan 10, 2017 18:46
[2017-01-10] MEDS: oxyCODONE-Acetamin 5-325 mg Tablet PO PRN (17:13)
--- NOTE | 2017-01-10 18:12 | NUR ---
Ambulation/GI/pain/Mag Pt participated well with physical therapy today; unsteady but did well with a walker. She currently uses a cane at home but she says her brother has her walker and she will get it from him. No emesis today. States that as long as she eats food before taking her pills she should not be nauseas or experience emesis. Had a BM today after 5 days of constipation. Senna was given 2 nights ago and today had prune juice. Next BM to be guaijanny'zainab MD directed that pt can use tramadol or percocet tonight and then start naproxen in the morning. Naproxen is pt's preferred choice but MD would prefer to not use that tonight due to testing and labs being performed. Magnesium = 1.1 tonight. Mag bag hanging for replacement per Mag/K+ protocol.
--- NOTE | 2017-01-10 20:02 | DRSVH ---
PROCEDURE: CT ABDOMEN AND PELVIS WITH CONTRAST ([id number]) INDICATIONS: persistent electrolyte abnormalities. CA concern TECHNIQUE: After the administration of oral and intravenous contrast, 5 mm thick sections acquired from the diap hragms to the symphysis. 5 mm thick coronal and sagittal reformats were performed. For radiation do se reduction, the following was used: automated exposure control, adjustment of mA and/or kV accordi ng to patient size. COMPARISON: [facility], CT, ABD/PELVIS W/O CON (PNL), 01/26/2012, 19:34. FINDINGS: Image quality: Excellent. ABDOMEN: Lung bases: Lung bases show bibasilar subsegmental atelectasis and miniscule pleural effusions.. He art size is normal. Solid organs: Liver and spleen are normal in size and enhancement. Gallbladder is considered within normal limits. Biliary system is non-dilated. Pancreas enhances normally. No adrenal nodules. Ki dneys are normal in size and enhancement, without hydronephrosis. Peritoneum and bowel: Stomach, small bowel, and colon loops are normal in caliber and wall thickness . No free fluid or air. Vascular clips would suggest previous appendectomy. Nodes and vessels: No retroperitoneal or mesenteric adenopathy. Aorta and inferior vena cava are no rmal in caliber. Prominent atherosclerotic calcifications are seen in the aorta and its branches. Miscellaneous: No ventral hernias. PELVIS: Genitourinary: Bladder wall thickness is normal. Miscellaneous: No inguinal hernias or adenopathy. Bones: No suspicious bony lesions. No vertebral body compression fractures. IMPRESSION: There is stranding around the kidneys, subcutaneous fat consistent with small amounts of edema. Cause is not appreciated. No evidence for malignancy is identified. Prominent atherosclerotic calcification is present. There is a 3 mm calcification in the region of the floor of the bladder suggesting a bladder calculus . Dictated by: Juan Whaley M.D. on 01/10/2017 at 19:50 Approved by: Juan Whaley M.D. on 01/10/2017 at 20:01
[2017-01-11] VITALS (7 sets, daily range): BP systolic 145–168; BP diastolic 66–76; PULSE 76–97; RESP 16–20; O2SAT 93–99
[2017-01-11 03:08] LABS: BASOPHILS % (AUTO) 0.4 % (0-3); EOSINOPHILS % (AUTO) 3.4 % (0-5); MONOCYTES % (AUTO) 9.9 % (4-12); Mean Corpuscular Hemoglobin 29.7 pg (27.0-35.0); Mean Corpuscular Volume 88.1 fL (81-100); NEUTROPHILS % (AUTO) 71.7 % (40-74); Platelet Count 183 bil/L (150-400)
[2017-01-11] MEDS ORDERED: KCl 40 mEq/500 mL D5W(K 3 - 3.7 & Creat < 2) IV ONE (05:30)
--- NOTE | 2017-01-11 05:53 | NUR ---
Potassium HS K 3.3; replacement ordered per K/Mg protocol and infused over four hours. Redraw this AM revealed K decreased to 3.2; additional replacement ordered and will be administered once received from pharmacy. Patient reported pain at 5/10 to R shoulder at HS; Tramadol administered with HS medications and patient had no further c/o pain throughout shift. Senna offered to patient at HS; patient denied, stating she would take prune juice in AM and did not want medication at this time. VSS, tele SR 90s.
[2017-01-11] MEDS: 0.9% Sodium Chloride 1,000 ML IV SCH ×3 (06:28→18:30)
--- NOTE | 2017-01-11 10:38 | NUR ---
D/C PT; safe to amb w/nsg FWW SBA
--- NOTE | 2017-01-11 13:01 | PCM.PNMED ---
Subjective Date of Service Jan 11, 2017 Subjective No specific events reported overnight. Today during interview patient states she feels very well overall. Imaging of the abdomen and pelvis was clear. Electrolyte panel shows normalization of magnesium and calcium though potassium still low. Replacement preparations given. Had a bowel movement today after being constant for 5 days. She states overall she feels pretty well physically but is concerned as to why her lab values have remained abnormal. Conversation was had with patient regarding some lab values that would need a closer look and evaluation by hematology/oncology specialty service. Dr. Awad from gynecology oncology contacted by phone today and will try to see patient at the end of his shift today. If however he is unable to visit with the patient today he has asked that we discharge the patient tomorrow and set up a close follow-up with not only her primary but hematology oncology. Exam Vital Signs Vital Sign - Last Date Time Temp Pulse Resp B/P Pulse Ox O2 Delivery O2 Flow Rate FiO2 01/11/17 12:21 37.0 81 18 154/76 97 Room Air 01/10/17 13:00 2.00 Intake and Output 01/10/17 01/10/17 01/11/17 Cumulative From/Thru 15:00 23:00 07:00 01/07/17 17:31 - 01/11/17 06:27 Intake Total 100 ml 2536 ml 1685 ml 33044 ml Output Total 600 ml 1300 ml 6525 ml Balance -500 ml 1236 ml 1685 ml 9079 ml Intake Oral 100 ml 760 ml 2341 ml IV Total 1776 ml 1685 ml 86573 ml Output Urine Total 600 ml 1300 ml 6225 ml Emesis 300 ml # Bowel Movements 1 1 Exam General: Awake, alert, sitting up in hospital bed in no acute distress well- developed, well-nourished, appropriately interactive. Multiple family members present in room during interview. HEENT: Normocephalic, atraumatic. Neck: Supple with full range of motion. No jugular venous distension. Cardiovascular: Regular rate and rhythm. Soft ejection murmur II/ Pulmonary: Diminished lung sounds. Expiratory crackles heard bilaterally. Abdomen: Soft, nontender to light palpation 4 quadrants. Extremities: No clubbing, cyanosis, edema. Skin: Normal temperature, turgor, and texture. Neurological: Cranial nerves grossly intact. Psychiatric: Normal mood and affect. Alert and oriented to person, place, and time. IVs and Medications Medications Reviewed: Medications were reviewed in detail Lab and Diagnostics Result Diagram: 01/11/1725401/11/17254 X-Rays, CTs and MRIs . X-RAY CHEST ONE VIEW, PORTABLE IMPRESSION: Right basilar infiltrate may be secondary to pneumonitis and pneumonia. Dictated by: Delia Rosario M.D. on 01/07/2017 CT BRAIN WITHOUT CONTRAST IMPRESSION: 1. No acute intracranial abnormalities. 2. Cerebral volume loss and chronic microvascular ischemic changes. Dictated by: Delia Rosario M.D. on 01/07/2017 CT CHEST WITHOUT CONTRAST IMPRESSION: 1. Bibasilar atelectasis. 2. A 5 mm spiculated nodule in the right apex is most likely secondary to apical scarring. 3. A mildly enlarged mediastinal lymph node, which is nonspecific and may be reactive. 4. Severe coronary and aortic atherosclerosis. 5. Bilateral nonoperative renal calculi. Dictated by: Delia Rosario M.D. on 01/07/2017 X-RAY RIGHT SHOULDER, MINIMUM TWO VIEWS IMPRESSION: No acute fractures or dislocations. Dictated by: Donal Kilgore M.D. on 01/08/2017 X-RAY CHEST, TWO VIEWS IMPRESSION: Left basilar airspace opacity suspicious for developing aspiration or pneumonia. Dictated by: Sd Robin [facility] Interpreted: Lane Moseley MD on 01/09/2017 CT ABDOMEN AND PELVIS WITH CONTRAST IMPRESSION: There is stranding around the kidneys, subcutaneous fat consistent with small amounts of edema. Cause is not appreciated. No evidence for malignancy is identified. Prominent atherosclerotic calcification is present. There is a 3 mm calcification in the region of the floor of the bladder suggesting a bladder calculus. Dictated by: Juan Whaley M.D. on 01/10/2017 12-lead ECG Sinus at rate of 89 with multiple PVCs noted QTC is 449 with a [place] of 201 Assessment & Plan Ms. Gaitan is a 76-year-old female with a history of hyperlipidemia, coronary artery disease status post stent placement 2011 and tobacco abuse admitted for weakness and lethargy accompanying electrolyte disorders Hypercalcemia, acute, present on admission, ongoing -Corrected calcium is normalized today -Continue IV fluid normal saline 150 ml/hr -Received IM calcitonin, 200 units IM every 12 hr 2 doses -Received IV bisphosphonate -PTH level low -TSH within normal limits -Vitamin D(1, 25 hydroxy, 25-hydroxy) along with SPEP pending -PTHrp pending -Serum monoclonal protein high -Hematology oncology contacted today, we will appreciate any recommendations -Continue to monitor Hypokalemia, acute, present on admission, ongoing -Potassium, magnesium replacement protocol -Continue to monitor Hypomagnesemia, acute, present on admission, ongoing -Replacement as above -Continue to monitor Possible Right basilar pneumonia, acute, present on admission CXR showed Right basilar infiltrate may be secondary to pneumonitis and pneumonia. -Placed on IV Levaquin -CT as above -Appropriate cultures and serologies pending, negative to date -Pro calcitonin negative -White count trending back down -Chest x-ray shows possible developing pneumonia -Continue to monitor Coronary artery disease, chronic, present on admission -Continue clopidogrel History of hypertension,Present on admission -Continue carvedilol -Continue losartan -Continue amlodipine #DVT prophylaxis -Subcutaneous Lovenox and SCDs Patient Status: Patient was admitted under inpatient status with expected length of stay greater than two midnights due to severity of presenting symptoms , risk of adverse event, and complexity of treatment plan. GI Prophylaxis: Not indicated VTE Prophylaxis: Sub-Q Enoxaparin, SCDs Resuscitation Status: CPR: Attempt Resuscitation Attending Statement The patient was seen and examined together with Dr. Webb on January 11 and I agree with the history, exam findings, and plan as outlined in the note above. I did participate in all aspects of the services provided today, including documentation and the plan of care. We will continue to correct her hypomagnesemia as well as hypokalemia. 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 She will be seen by hematology oncology later today for their opinions. AURELIA WEBB DO Jan 11, 2017 13:01 Sudhir Shaw MD Jan 13, 2017 08:27
--- NOTE | 2017-01-11 17:42 | NUR ---
Multidisciplinary Communication [id number] - Discussed her care with Dr. Shaw, Dr. Webb, and the rest of the multidisciplinary care team during morning rounds. Notified them that she still had normal saline ordered at 150 mls/hour and asked if they wanted this to be slowed down. Dr. Webb said he would slow the rate down. He ordered Normal saline at 60 mls/hour a little later. Also, informed them that the patient was requesting her Losartan to be administered in the evening (per her home schedule) instead of in the morning. This information was acknowledged. Care continues. Addendum: 01/11/17 at 1749 by SAMMIE ZAMAN RN [id number] - Called the mineral surveying technician to see if the Pharmacist could change the Losartan time to 1999 as it had not been changed yet. He said he would ask the Pharmacist.
--- NOTE | 2017-01-11 19:03 | NUR ---
1902 - Called the Pharmacy again as her Losartan time hadn't been changed. The Pharmacist said he would change it. maintenance supervisor 2nd shift notified. Care continues.
[2017-01-12 03:01] VITALS: PULSE 82
[2017-01-12 03:38] VITALS: BP 150/65; PULSE 84; RESP 20; O2SAT 96
[2017-01-12 04:13] LABS: BASOPHILS % (AUTO) 0.5 % (0-3); EOSINOPHILS % (AUTO) 4.6 % (0-5); Mean Corpuscular Hemoglobin 29.8 pg (27.0-35.0); Mean Corpuscular Volume 87.7 fL (81-100); NEUTROPHILS % (AUTO) 64.8 % (40-74); Platelet Count 199 bil/L (150-400)
--- NOTE | 2017-01-12 06:30 | NUR ---
Pain Pt c/o pain in right shoulder 06/24 this shift. Administered Naproxen x2 this shift and effective, pt very pleased with how naproxen was helpful in decreasing pain. VSS and Tele SR.
--- NOTE | 2017-01-12 07:16 | PROG NOTE ---
[address] [address] PROGRESS NOTE PATIENT: HENOK CHU : 1940 MR#: [id number] ADMIT: 01/07/2017 JOB ID: [id number] DATE: 01/11/2017 NEW CONSULT NOTE: The patient was seen on the [facility] inpatient service. REFERRING PHYSICIAN: Dr. Ruiz Webb REASON FOR CONSULTATION: Abnormal SPEP and hypercalcemia. HISTORY OF PRESENT ILLNESS: The patient is a very pleasant 76-year-old female recently seen at the [facility] Emergency Department on January 07, 2017, at which time she presented with four days of increasing weakness. Initial workup including laboratory data on January 07, 2017 reporting a calcium of 15.2, magnesium of 1.1, potassium 2.8, sodium 137, 155, serum creatinine 1.12, CO2 of 37. AST 24, ALT 12, alk phos 12. Hemoglobin was noted to be normal at 13.7, hematocrit 39, white blood cell count normal at 12. Total protein was 6.7, albumin was 3.3. The patient's ionized calcium was also noted to be elevated at 1.92. The patient was treated acutely with IV Zometa on January 07, 2017 with IV fluid support. Subsequent workup for her hypercalcemia included a parathyroid hormone on January 07, 2017, which is normal at 12 and a vitamin D 125 hydroxy level which was low at 7.5. In addition she had serial imaging studies including CT of the abdomen dated January 10, 2017. This reported stranding around the kidneys and subcutaneous fat consist with small amounts of edema but no evidence for malignancy was seen. Spleen was normal in size. Plain film of the chest on January 09, 2017, reporting no suspicious bony abnormalities, left basilar airspace opacities suspicious for developing aspiration or pneumonia. The patient had right shoulder discomfort and subsequently had a plain film of the right shoulder on January 08, 2017, showing no fractures or dislocations. No lytic lesions were seen. On January 07, 2017 CT of the brain without any acute abnormalities. The bones were without any suspicious lesions. Finally, on January 07, 2017, CT of the chest without contrast showing only a 5 mm indeterminate spiculated nodule. A 1 cm precarinal lymph node was identified. No other adenopathy was seen. No suspicious bony lesions. Finally, on January 07, 2017 serum protein electrophoresis identifying an abnormal paraprotein measuring 0.3 g/dL. Clinically the patient has been stabilized with supportive care, with her most recent calcium level on January 11, 2017 normal at 8.5, magnesium normal at 1.8, potassium 3.9. Clinically, the patient offers no new complaints since her hospital stay. She states that prior to her admission and her acute presentation she had noticed progressive lower extremity weakness over the past four months to the point where gait instability was becoming an issue. She also noticed decreased appetite with associated weight loss, not quantifiable per the patient. The patient also otherwise reported an episode of upper respiratory symptoms occurring in the first of September presenting with congestion and cough lasting for about three weeks and recurring in October 2016 with similar symptoms. She has also been describing right shoulder pain but since taking some naproxen while in the hospital that has completely resolved and the previous decreased range of motion is no longer apparent to her. REVIEW OF SYSTEMS: The remainder of her review of systems was otherwise negative. ALLERGIES: AT THIS TIME INCLUDE CODEINE AND CHANTIX. PRESCRIPTION MEDICATIONS: At home include 10 mg q.a.m., calcium supplement 600 mg daily, carvedilol 6.25 mg b.i.d., Plavix 75 mg daily, hydrochlorothiazide 25 mg q.a.m., losartan 50 mg in the morning, potassium 25 mEq at night, simvastatin 40 mg q.a.m. PAST MEDICAL HISTORY: Significant for: 1. Hypercalcemia with workup in progress, likely due to malignancy. 2. Coronary artery disease with stent placement. 3. Chronic angina. 4. Right breast cancer diagnosed in 1999. No medical records available. The patient had surgery and radiation therapy but did not take any chemo or adjuvant antihormone therapy. Treatment was done at [facility]. PAST SURGICAL HISTORY: Includes "all female parts." SOCIAL HISTORY: She currently lives with her son. Has been smoking for the past 70 years, a half pack per day. Denies any alcohol. PHYSICAL EXAMINATION: Vital signs today showing a weight of 67 kg, blood pressure 154/76, temperature 37, pulse is 81, respiratory rate is 18, she is saturating at 97% room air. She was lying in bed in good spirits overall. Affect was appropriate, although she was a very poor historian. No signs of confusion or difficulty with word-finding, No cervical, supraclavicular, or axillary adenopathy was appreciated. COR was RRR without significant murmurs, rubs, or gallops. Lungs are clear to auscultation bilaterally, without significant adventitious breath sounds. Abdomen was nondistended, nontender. No hepatosplenomegaly. Lower extremities without any significant swelling or edema. Skin without further rashes or lesions. Cranial nerves are grossly intact. No focality. ASSESSMENT AND PLAN: The patient is a very pleasant 76-year-old female recently diagnosed with hypercalcemia likely due to malignancy with plasma cell dyscrasia high on the differential given her abnormal paraprotein level identified on January 07, 2017. The patient's hypercalcemia at 15 could clearly explain her clinical presentation of fatigue, gait instability, and decreased appetite and weight loss. The patient did receive Zometa on January 07, 2017. Calcium levels have normalized. Additional causes of her hypercalcemia include breast cancer. Tumor marker is being sent today and she will be scheduled for a bilateral mammogram (last mammogram was on December 10, 2014). In addition, the patient is being scheduled for a skeletal survey. Laboratory data ordered as an outpatient will include a free light chain assay, beta two microglobulin level, CEA, CA 27-29, and a CA 15-3. Followup will be in the outpatient setting in approximately two weeks' time. Our clinic will be arranging for all the above blood tests, imaging studies, and followup. The patient should otherwise be discharged per hospitalist service. She had no further questions. Thank very much, Dr. Webb, for the kind referral. Please call with any questions or concerns. CC: Ruiz Webb, DO
[2017-01-12] MEDS ORDERED: Potassium Chloride 20 mEq SR Tablet PO ONE (07:25)
[2017-01-12 08:00] VITALS: PULSE 84
[2017-01-12] MEDS ORDERED: Magnesium Sulf 4 Gm/100 mL D5W Premix IV ONE (09:10)
[2017-01-12 10:00] VITALS: BP 150/64; PULSE 79; RESP 16; O2SAT 98
[2017-01-12] MEDS ORDERED: POTA20TA16 PO (11:01)
[2017-01-12] MEDS ORDERED: MAGN400C PO (11:01)
[2017-01-12] MEDS ORDERED: CARV6.252 PO (11:01)
[2017-01-12] MEDS ORDERED: LOSA50TA37 PO (11:01)
[2017-01-12] MEDS: 0.9% Sodium Chloride 1,000 ML IV SCH (11:10)
--- NOTE | 2017-01-12 11:16 | PCM.DIMED ---
AURELIA WEBB DO 01/12/17 1116: Discharge Instructions Date of Service Jan 12, 2017 Dates of Hospitalization Jan 07, 2017 at 18:49 Discharge Diagnosis Discharge Diagnosis Hypercalcemia Hypokalemia Hypomagnesemia Possible Right basilar pneumonia Coronary artery disease History of hypertension Medication Instructions Additional med instructions Please continue to take your medications as they have been previously prescribed as follows: Aspirin 81 mg by mouth daily Atorvastatin 40 mg by mouth daily Clopidogrel 75 mg by mouth daily Multivitamin 1 tablet daily Nortriptyline 25 mg by mouth at bedtime Tramadol 50 mg by mouth every 4 hours as needed for pain Nitroglycerin 0.3 mg tablet placed underneath the tongue as needed every 5 minutes for chest pain times max dose of 3 The following prescriptions have been changed, please take these medications as prescribed: Carvedilol 6.25 mg tablet by mouth 2 times per day morning and evening Losartan 50 mg tablet by mouth 2 times per day morning and evening The following prescriptions are new medications you are to take daily until seen by your primary care provider: Magnesium oxide 400 mg by mouth daily Potassium chloride 20 Meq by mouth 2 times per day The following medications have been discontinued: Amlodipine Calcium tablets Chlorthalidone Simvastatin - this did not appear on your outpatient medication reconciliation The medications that have been newly prescribed have been sent electronically to your pharmacy of choice Test Results Test Results CT BRAIN WITHOUT CONTRAST IMPRESSION: 1. No acute intracranial abnormalities. 2. Cerebral volume loss and chronic microvascular ischemic changes. CT CHEST WITHOUT CONTRAST IMPRESSION: 1. Bibasilar atelectasis. 2. A 5 mm spiculated nodule in the right apex is most likely secondary to apical scarring. 3. A mildly enlarged mediastinal lymph node, which is nonspecific and may be reactive. 4. Severe coronary and aortic atherosclerosis. 5. Bilateral nonoperative renal calculi. X-RAY RIGHT SHOULDER, MINIMUM TWO VIEWS IMPRESSION: No acute fractures or dislocations. CT ABDOMEN AND PELVIS WITH CONTRAST IMPRESSION: There is stranding around the kidneys, subcutaneous fat consistent with small amounts of edema. Cause is not appreciated. No evidence for malignancy is identified. Prominent atherosclerotic calcification is present. There is a 3 mm calcification in the region of the floor of the bladder suggesting a bladder calculus. Diet Discharge Diet: Low fat, Low Sodium Activity Discharge Activity: Limited until seen by PCP Call your provider Call your provider for: Fever or Chills, Shortness of breath, Bleeding, Chest pain, Vomitting, Excessive diarrhea, Weakness (unilateral) Patient Instructions Patient Instructions Your being discharged to home, please follow-up with the residency clinic early next week and follow-up with the oncologist Dr. Awad in 2 weeks. I have scheduled you an appointment at the [facility] family medicine residency clinic with Dr. Zavala also January 17 at 10 AM, please check in to the clinic at 9:45 AM Follow-up plan Please follow-up with the family medicine residency clinic within 1 week. Please follow-up with your hematology oncologist Dr. Awad in 2 weeks. Follow-up Provider: [facility] Residency Clinic Follow-up with PCP in: 1 week Provider: Niko Awad DO Follow-up in: 2 weeks Sudhir Shaw MD 01/12/17 1558: Discharge Instructions Attending's Statement The patient was seen and examined together with Dr. Webb on January 12 and I agree with the history, exam findings, and plan as outlined in the note above. I did participate in all aspects of the services provided today, including documentation and the plan of care. Patient being discharged home today. She will see Dr. 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 In addition she will have magnesium and potassium supplementation daily in between now and follow-up. AURELIA WBEB DO Jan 12, 2017 11:16 Sudhir Shaw MD Jan 12, 2017 15:58
--- NOTE | 2017-01-12 11:24 | PCM.DC.MED ---
Discharge Summary Date of Service Jan 12, 2017 Dates of Hospitalization Date of Hospital Admission Jan 07, 2017 at 18:49 Date of Discharge: Jan 12, 2017 Providers: Admitting Physician: Ashwini Trammell MD Primary Care Physician: Joey Duran DO Attending Physician: Sudhir Shaw MD Diagnosis at Time of Discharge Diagnosis at Time of Discharge Hypercalcemia Hypokalemia Hypomagnesemia Possible Right basilar pneumonia Coronary artery disease History of hypertension Consultations Dr. Delmi Ku, hematology oncology Procedures XRay, CTs & MRIs . X-RAY CHEST ONE VIEW, PORTABLE IMPRESSION: Right basilar infiltrate may be secondary to pneumonitis and pneumonia. Dictated by: Delia Rosario M.D. on 01/07/2017 CT BRAIN WITHOUT CONTRAST IMPRESSION: 1. No acute intracranial abnormalities. 2. Cerebral volume loss and chronic microvascular ischemic changes. Dictated by: Delia Rosario M.D. on 01/07/2017 CT CHEST WITHOUT CONTRAST IMPRESSION: 1. Bibasilar atelectasis. 2. A 5 mm spiculated nodule in the right apex is most likely secondary to apical scarring. 3. A mildly enlarged mediastinal lymph node, which is nonspecific and may be reactive. 4. Severe coronary and aortic atherosclerosis. 5. Bilateral nonoperative renal calculi. Dictated by: Delia Rosario M.D. on 01/07/2017 X-RAY RIGHT SHOULDER, MINIMUM TWO VIEWS IMPRESSION: No acute fractures or dislocations. Dictated by: Donal Kilgore M.D. on 01/08/2017 X-RAY CHEST, TWO VIEWS IMPRESSION: Left basilar airspace opacity suspicious for developing aspiration or pneumonia. Dictated by: Sd Robin RRA Interpreted: Lane Moseley MD on 01/09/2017 CT ABDOMEN AND PELVIS WITH CONTRAST IMPRESSION: There is stranding around the kidneys, subcutaneous fat consistent with small amounts of edema. Cause is not appreciated. No evidence for malignancy is identified. Prominent atherosclerotic calcification is present. There is a 3 mm calcification in the region of the floor of the bladder suggesting a bladder calculus. Dictated by: Juan Whaley M.D. on 01/10/2017 ECG 12 Lead Sinus at rate of 89 with multiple PVCs noted QTC is 449 with a NE of 201 Brief History History of present illness by Dr. Jp M.D. 01/07/2017 "This is a 76-year-old female with a history of hyperlipidemia history of coronary artery disease status post stent placement 2011 who presents with increasing weakness and more lethargic and confused. This started approximately 4 days ago. I note her calcium was elevated to 15.2 magnesium level was 1.1 and her potassium was noted to be 2.8. Patient notes no prior history of electrolyte disturbances. Patient is not sure what her medications are. 2 family members are at bedside and do not now. Patient lives with her disabled son and helps take care of him. Patient also related to ER doctor chest pain. Given her history of that when I question her. She also had nausea vomiting which started earlier today. She denies any abdominal pain. Denies any diarrhea or constipation." Hospital Course Ms. Gaitan is a 76-year-old female with a history of hyperlipidemia, coronary artery disease status post stent placement 2011 and tobacco abuse admitted for weakness and lethargy accompanying electrolyte disorders Hypercalcemia, acute, present on admission, ongoing Calcium of ~15 on admit which most likely was the causation of her recent fatigue, gait instability weight loss and decreased appetite. History of breast cancer, tumor markers pending per oncology. Per oncology: The Scheduled for bilateral mammogram, skeletal survey and additional Laboratory data - free light chain assay, beta two microglobulin level, CEA, CA 27-29, and a CA 15-3. -Corrected calcium had normalized by discharge -IV fluid normal saline 150 ml/hr, this was brought back to 60 mL per hour and then discontinued with transition to oral fluid intake -Received IM calcitonin, 200 units 2 doses -Received IV bisphosphonate -PTH level low -TSH within normal limits -Vitamin D(1, 25 hydroxy, 25-hydroxy) along with SPEP -PTHrp lab -Serum monoclonal protein high -Hematology oncology consult, recommendations as follows Hypokalemia, acute, present on admission, ongoing -Potassium, magnesium replacement protocol while in hospital -Levels remained labile -Discharged with oral potassium supplement 20 MB every twice a day Hypomagnesemia, acute, present on admission, ongoing -Replacement , throughout hospital stay with persistently labile levels -Discharged with oral magnesium supplement 400 mg daily Possible Right basilar pneumonia, acute, present on admission. Unlikely CXR showed Right basilar infiltrate may be secondary to pneumonitis and pneumonia. -Placed on IV Levaquin, this was discontinued as no evidence of developing pneumonia -CT, CXR as above -Appropriate cultures and serologies negative -Pro calcitonin negative -White count initially elevated, quickly trended down Coronary artery disease, chronic, present on admission -Continued clopidogrel History of hypertension,Present on admission -Continued carvedilol, dose increased at discharge -Continued losartan, dose increased at discharge -Amlodipine discontinued at discharge Exam Vital Signs (Last) Date Time Temp Pulse Resp B/P Pulse Ox O2 Delivery O2 Flow Rate FiO2 01/12/17 10:00 36.4 79 16 150/64 98 Room Air 01/10/17 13:00 2.00 Exam General: Awake, alert, sitting up in hospital bed in no acute distress well- developed, well-nourished, appropriately interactive. HEENT: Normocephalic, atraumatic. Neck: Supple with full range of motion. No jugular venous distension. Cardiovascular: Regular rate and rhythm. Soft ejection murmur II/ Pulmonary: Diminished lung sounds. Expiratory crackles heard bilaterally, improved from yesterday Abdomen: Soft, nontender to light palpation 4 quadrants. Extremities: No clubbing, cyanosis, edema. Skin: Normal temperature, turgor, and texture. Neurological: Cranial nerves grossly intact. Psychiatric: Normal mood and affect. Alert and oriented to person, place, and time. Test 01/07/17 16:10 01/07/17 18:55 01/08/17 03:03 01/08/17 16:29 Troponin T < 0.010ug/L (0.0-0.011) Ionized Calcium 1.92mmol/L (1.17-1.32) Globulin (PEP) 3.5g/dL (2.2-3.9) Albumin/Globulin Ratio 1.0 (0.7-1.7) Waajm-1-Tayieqaij 0.3g/dL (0.0-0.4) Afiys-3-Fawzkpoie 1.0g/dL (0.4-1.0) Beta Globulins 1.3g/dL (0.7-1.3) Gamma Globulins 0.9g/dL (0.4-1.8) Serum Monoclonal Protein 0.3g/dL (Not Observed) Protein Electrophoresis Comment Comment (.) Protein Electrophoresis Interpret Comment (.) Vitamin D 25-Hydroxy 52.4ng/mL (30.0-100.0) Vitamin D 1,25-Dihydroxy 7.5pg/mL (19.9-79.3) Thyroid Stimulating Hormone (TSH) 1.280uIU/mL (0.450-4.500) Free Thyroxine Index 3.0 (1.2-4.9) Thyroxine (T4) 9.8ug/dL (4.5-12.0) Triiodothyronine (T3) Uptake 31% (24-39) Parathyroid Hormone (Intact) 12pg/mL (15-65) Phosphorus Level 2.9mg/dL (2.5-4.9) Test 01/09/17 03:48 01/09/17 21:54 01/11/17 02:55 01/12/17 04:00 Urine Legionella pneumophilia Ag Negative (Negative) Urine Color Yellow (YELLOW) Urine Appearance Clear (CLEAR,HAZY) Urine pH 6.0 (5.0-8.0) Urine Specific [place] 1.015 (1.003-1.035) Urine Protein Negativemg/dL (NEG,TRACE) Urine Glucose (UA) Negativemg/dL (NEGATIVE) Urine Ketones Negativemg/dL (NEGATIVE) Urine Occult Blood Negative (NEGATIVE) Urine Nitrite Negative (NEGATIVE) Urine Bilirubin Negative (NEGATIVE) Urine Urobilinogen Normalmg/dL (NORMAL) Urine Leukocyte Esterase Negative (NEGATIVE) Urine RBC 0-2/hpf (0-2) Urine WBC 0-5/hpf (0-5) Urine Epithelial Cells Occasional/hpf (NONE-MOD) Urine Crystals None seen (NONE SEEN) Urine Bacteria Few/hpf (NONE-FEW) Urine Hyaline Casts None/lpf (NONE) Urine Granular Casts None seen (NONE SEEN) Urine Waxy Casts None seen (NONE SEEN) Urine Red Blood Cell Casts None seen (NONE SEEN) Urine White Blood Cell Casts None seen (NONE SEEN) Urine Mucus None seen (None Seen) Urine Trichomonas None seen (NONE SEEN) Urine Yeast None (NONE SEEN) Urinalysis Comment None Urine Culture Reflexed Not indicated Procalcitonin 0.08ng/mL (0.00-0.08) Sodium Level 139mEq/L (134-144) Potassium Level 3.2mEq/L (3.5-5.2) Chloride Level 105mEq/L (97-108) Carbon Dioxide Level 21mmol/L (18-29) Blood Urea Nitrogen 15mg/dL (8-27) Creatinine 0.76mg/dL (0.57-1.00) Estimat Glomerular Filtration Rate 105mL/min (>59) Glucose Level 118mg/dL (60-99) Calcium Level 8.0mg/dL (8.5-10.1) Magnesium Level 1.3mg/dL (1.6-2.6) Total Bilirubin 0.3mg/dL (0.0-1.2) Aspartate Amino Transf (AST/SGOT) 25U/L (0-50) Alanine Aminotransferase (ALT/SGPT) 15U/L (0-32) Alkaline Phosphatase 45U/L (25-165) Total Protein 5.5g/dL (6.4-8.4) Albumin 2.9g/dL (3.4-5.0) Test 01/12/17 05:00 White Blood Count 8.3th/mm3 (3.8-10.1) Red Blood Count 3.59mil/mm3 (3.90-5.20) Hemoglobin 10.7g/dL (12.0-15.6) Hematocrit 31.5% (35.0-46.0) Mean Corpuscular Volume 87.7fL (81-100) Mean Corpuscular Hemoglobin 29.8pg (27.0-35.0) Mean Corpuscular Hemoglobin Concent 34.0% (32.0-37.0) Red Cell Distribution Width 13.8% (12.3-15.4) Platelet Count 199bil/L (150-400) Neutrophils (%) (Auto) 64.8% (40-74) Lymphocytes (%) (Auto) 19.9% (14-46) Monocytes (%) (Auto) 10.0% (4-12) Eosinophils (%) (Auto) 4.6% (0-5) Basophils (%) (Auto) 0.5% (0-3) Discharge Medications Discharge Medications Aspirin Chew (Aspirin Chew) 81 Mg Chew 81 MG PO DAILY (Reported) Atorvastatin (Lipitor) 40 Mg Tablet 40 MG PO DAILY (Reported) Carvedilol (Carvedilol) 6.25 Mg Tablet 6.25 MG PO BID Prescribed by: AURELIA WEBB DO Clopidogrel (Clopidogrel) 75 Mg Tablet 75 MG PO DAILY (Reported) Losartan Potassium (Losartan Potassium) 50 Mg Tablet 50 MG PO BID Prescribed by: AURELIA WEBB DO Magnesium Oxide (Magnesium) 400 Mg Capsule 400 MG PO DAILY Prescribed by: AURELIA WEBB DO Multivitamin (Multi Vitamin Daily) 1 Each Tablet 1 EACH PO DAILY (Reported) Nortriptyline (Nortriptyline) 25 Mg Capsule 25 MG PO HS (Reported) Potassium Chloride (Potassium Chloride) 20 Meq Tab.er.prt 20 MEQ PO BID TAKE WITH FOOD Prescribed by: AURELIA WEBB DO As needed Tramadol (Tramadol) 50 Mg Tablet 50 MG PO Q4H PRN PRN For Pain (Reported) Q6-8 hours PRN Miscellaneous Medications Nitroglycerin (Nitroglycerin) 0.3 Mg Tab.subl 0.3 MG SL (Reported) Additional med instructions Please continue to take your medications as they have been previously prescribed as follows: Aspirin 81 mg by mouth daily Atorvastatin 40 mg by mouth daily Clopidogrel 75 mg by mouth daily Multivitamin 1 tablet daily Nortriptyline 25 mg by mouth at bedtime Tramadol 50 mg by mouth every 4 hours as needed for pain Nitroglycerin 0.3 mg tablet placed underneath the tongue as needed every 5 minutes for chest pain times max dose of 3 The following prescriptions have been changed, please take these medications as prescribed: Carvedilol 6.25 mg tablet by mouth 2 times per day morning and evening Losartan 50 mg tablet by mouth 2 times per day morning and evening The following prescriptions are new medications you are to take daily until seen by your primary care provider: Magnesium oxide 400 mg by mouth daily Potassium chloride 20 Meq by mouth 2 times per day The following medications have been discontinued: Amlodipine Calcium tablets Chlorthalidone Simvastatin - this did not appear on your outpatient medication reconciliation The medications that have been newly prescribed have been sent electronically to your pharmacy of choice Followup Plan Disposition: Discharged home in stable condition Follow-up plan Please follow-up with the family medicine residency clinic within 1 week. Please follow-up with your hematology oncologist Dr. Awad in 2 weeks. Discharge Diet: Low fat, Low Sodium Discharge Activity: Limited until seen by PCP Patient Instructions Your being discharged to home, please follow-up with the residency clinic early next week and follow-up with the oncologist Dr. Awad in 2 weeks. I have scheduled you an appointment at the [facility] family medicine residency clinic with Dr. Zavala also Nathaly, [place] [address] at 10 AM, please check in to the clinic at 9:45 AM Follow-up Provider: [facility] Follow-up with PCP in: 1 week Provider: Niko Awad DO Follow-up in: 2 weeks Time spent 60 minutes Attending Statement The patient was seen and examined together with Dr. Webb on January 12 and I agree with the history, exam findings, and plan as outlined in the note above. I did participate in all aspects of the services provided today, including documentation and the plan of care. She is going to be discharged home on potassium and magnesium supplements. With Dr. Awad. We are concerned about a gammopathy at possibility of early multiple myeloma or other plasma cell malignancy. copies to: Niko Awad DO; Joey Duran GILES A DO Jan 12, 2017 11:24 Sudhir Shaw MD Jan 12, 2017 15:59
--- NOTE | 2017-01-12 11:38 | NUR ---
Social Work: Discharge/Multidisciplinary Rounds D: Pt discussed in multidisciplinary rounds; the patient is medically stable for discharge home. [place] for self-care and discharge needs discussed. No concerns or needs identified at this time. Pt has been ambulating I and was released from PT to ambulate with nursing. No home recommendations. SCHEDULE ANNOUNCER met with the patient at bedside to reassess and confirm discharge plan. Pt lives in [place] with her son. She has no concerns about her discharge and states that her son will be coming to get her. A: Pt who is I at baseline. P: Pt to discharge home today via POV/Son to transport. No sw needs identified. CHELSEA Edwards
[2017-01-12 11:59] VITALS: BP 156/69; PULSE 78; RESP 16; O2SAT 98
[2017-01-12] MEDS ORDERED: Magnesium Chloride SR 64 mg ER24 Tablet PO ONE (12:00)
--- NOTE | 2017-01-12 12:50 | NUR ---
Discharge 0945 - Discussed her care with Dr. Webb, Dr. Shaw, and the rest of the multidisciplinary care team during morning rounds. 0953 - Noted that she had discharge orders and she was very eager to leave as she needed to take her son to get his psychiatric medication which he hadn't received in weeks. However, her magnesium had was 1.3. Had ordered an IV bag of Magnesium per the Potassium/Magnesium protocol. Spoke to Dr. Webb and asked if he wanted the magnesium given before she left and he said yes. It was started by this nurse and was made sure to be running. 1158 - Deanne, the Charge Nurse went in the room and found that the Magnesium had been stopped and that just her normal saline was running. The patient was understandably upset that it hadn't been running this whole time. Started it again and went to speak to Dr. Webb explaining what had happened and asked if she could be given a magnesium tablet and then sent home. He agreed to this and a tablet was ordered. 1250 - She discharged at this time and was wheeled down to the [facility] where her son had all her belongings and had come to drive her home. Her two IVs and telemetry were discontinued intact. She was given the magnesium. Discussed and gave her the discharge paperwork (care notes and instructions). Her prescriptions were faxed to her preferred pharmacy. She thanked staff for their care.
[2017-01-14] MEDS ORDERED: NAPR250T5 PO (16:13)
== END 2017-01-12 12:50 | disposition home or self-care (01) | DRG 640 ==
LOC: SED 15:22 → PCC 18:49
PROVIDERS: ADMIT Specialist; ATTEND Specialist
DX: E83.52 Hypercalcemia (principal); J18.9 Pneumonia, unspecified organism; C90.30 Solitary plasmacytoma not having achieved remission; E87.6 Hypokalemia; E83.42 Hypomagnesemia; I25.10 Atherosclerotic heart disease of native coronary artery without angina pectoris; F17.210 Nicotine dependence, cigarettes, uncomplicated; Z95.5 Presence of coronary angioplasty implant and graft; I10 Essential (primary) hypertension

== ENCOUNTER 2017-01-14 14:22 | Inpatient (IN) | payer MEDICARE ==
[2017-01-14] VITALS (7 sets, daily range): BP systolic 136–170; BP diastolic 54–68; PULSE 78–106; RESP 13–22; O2SAT 97–99
[~2017-01-14] VITALS: Ht 165.1 cm; Wt 64.6 kg
[~2017-01-14 14:22] MED LIST changes: -AMLO10TA5 PO; -ASPI-653 PO; +ASPI81TA3 PO; -CALC-794 PO; +CARV6.252 PO; -CLOP75TA14 PO; +CLOP75TA28 PO; -COR625 PO; -FOSD70 PO; -HYDR25TA4 PO; +LIP40 PO; -LOSA100T29 PO; +LOSA50TA37 PO; +MAGN400C PO; -MULT-1007 PO; +MULT-1018 PO; +NITR0.3T6 SL; -NITR0.4T SL; +NORT25CA PO; +POTA20TA16 PO; -POTA20TA35 PO; -RANI-5 PO; -SMV40T PO; +TRAM50TA2 PO
--- NOTE | 2017-01-14 14:25 | ED.REPORT ---
HPI-Chest Pain 40 and Over Date of Service Jan 14, 2017 ED Provider: Dr. Jordan Pt is a 76 y/o female w/ a hx of severe CAD with chronic angina s/p stent placement, HTN, HLD, presenting to the ED c/o CP onset 13:00 today. Last night, the patient was experiencing some jaw pain for which she took nitro for. At 13: 00 today, she experienced sudden, severe chest pain with radiation to the right jaw at 13:00 while watching TV. She took some of her home nitroglycerin which relieved her pain after 5 minutes and called EMS. At time of arrival to the ED her CP is described as a very mild pressure. Pt denies SOB. She was recently admitted from Jan 07- to [facility] due multiple lab abnormalities, most notable hypercalcemia of 15.2. Her acute discharge diagnoses were: Hypercalcemia, Hypokalemia, Hypomagnesemia, Possible Right basilar pneumonia. Nursing Notes Stated Complaint: CHEST PAIN Nursing Notes Reviewed: Yes Allergies: Coded Allergies: TAPE (Verified Allergy, Severe, RASH,BLISTERS,SKIN PEELING, 01/26/12) codeine (Verified Allergy, Severe, 03/10/09) latex (Verified Allergy, Severe, ELASTIC - RASH, 01/26/12) varenicline tartrate (Verified Allergy, Severe, Hives, 01/26/12) Scheduled Aspirin Chew (Aspirin Chew) 81 Mg Chew 81 MG PO HS Atorvastatin (Lipitor) 40 Mg Tablet 40 MG PO HS Carvedilol (Carvedilol) 6.25 Mg Tablet 6.25 MG PO BID Clopidogrel (Clopidogrel) 75 Mg Tablet 75 MG PO QAM Losartan Potassium (Losartan Potassium) 50 Mg Tablet 50 MG PO QAM Magnesium Oxide (Magnesium) 400 Mg Capsule 400 MG PO DAILY Multivitamin (Multi Vitamin Daily) 1 Each Tablet 1 EACH PO QAM Nortriptyline (Nortriptyline) 25 Mg Capsule 25 MG PO EVERY OTHER NIGHT PATIENT TITRATING OFF THIS MEDICATION Potassium Chloride (Potassium Chloride) 20 Meq Tab.er.prt 20 MEQ PO BID TAKE WITH FOOD Tramadol (Tramadol) 50 Mg Tablet 50 MG PO HS PT TITRATING OFF THIS MED Scheduled PRN Naproxen Sodium (Naproxen Sodium) 220 Mg Capsule 220 MG PO BID PRN PRN SHOULDER PAIN Nitroglycerin (Nitroglycerin) 0.3 Mg Tab.subl 0.3 MG SL Q5MIN PRN PRN For Chest Pain diphenhydrAMINE HCl (Benadryl) 25 Mg Capsule 25 MG PO DAILY PRN PRN ALLERGIES General Time Seen by MD: 14:24 Chief Complaint Chest pain Hx Obtained From: Patient, EMS Arrived By: Ambulance Sudden in Onset?: Yes Onset Occurred: Just prior to arrival Symptom Duration: Since onset Location: : Substernal Quality: Painful Radiation: : Does not radiate Severity: Current: No pain currently Severity: Maximum: Moderate Past Medical History Past Medical History Notes: Search Engine Optimization Specialist: Dr. Ronnie Javier PCP: Dr. Joey Duran Past Medical History Hypertension Hyperlipidemia Severe CAD Past Surgical History Cardiac stent placement (2011) Smoking History Current Every Day Smoker Social History Other Social History: Good social support, Local resident Ambulatory Status Independent Review of Systems Respiratory: Denies: Shortness of breath Cardiovascular: Reports: Chest pain Complete sys rev & neg: except as marked. Physical Exam Initial Vital Signs Vital Signs (First) Date Time Temp Pulse Resp B/P Pulse Ox O2 Delivery O2 Flow Rate FiO2 01/14/17 14:22 36.8 103 16 153/64 97 Room Air 01/14/17 14:58 2 Initial VS: Reviewed, Vital signs abnormal Head / Eyes: Atraumatic, Normocephalic ENT: Mucous membranes moist, Conjunctiva normal Neck: Full range of motion Extremities: Vascular intact, Neuro intact Skin: Warm, Dry, No cyanosis Neurologic: Alert, Oriented, Nonfocal Psychiatric: Mood/affect normal, Behavior normal, Normal thought content General/Constitutional: Awake, Alert, Cooperative, Not toxic appearing Distress / Hydration: Positive: Distress moderate Respiratory / Chest: Breath sounds NL, Breath sounds = bilat, No respiratory distress, No rales, No rhonchi, No wheezing, No stridor, No chest tenderness Cardiovascular: Regular rhythm, Heart sounds NL, No gallop, No murmurs, No rubs , Cap refill not delayed, Peripheral circulation NL, Pulses = bilaterally Heart Rate / Rhythm: Positive: Tachycardia (mild) Lower Ext Edema: Positive: Bilateral 1+ Abdomen: Soft, Non-tender, No guarding, No rebound, No distention, No palpable mass Interpretation & Diagnostics Lab Results Interpretation Result Diagram: 01/14/17 1400 01/14/17 1400 Test 01/14/17 14:00 White Blood Count 9.9th/mm3 (3.8-10.1) Red Blood Count 3.30mil/mm3 (3.90-5.20) Hemoglobin 10.1g/dL (12.0-15.6) Hematocrit 29.5% (35.0-46.0) Mean Corpuscular Volume 89.4fL (81-100) Mean Corpuscular Hemoglobin 30.6pg (27.0-35.0) Mean Corpuscular Hemoglobin Concent 34.2% (32.0-37.0) Red Cell Distribution Width 14.3% (12.3-15.4) Platelet Count 265bil/L (150-400) Neutrophils (%) (Auto) 64.0% (40-74) Lymphocytes (%) (Auto) 18.5% (14-46) Monocytes (%) (Auto) 12.1% (4-12) Eosinophils (%) (Auto) 4.6% (0-5) Basophils (%) (Auto) 0.5% (0-3) Prothrombin Time 9.4sec (8.1-12.5) Prothromb Time International Ratio 0.88ratio Activated Partial Thromboplast Time 23.8sec (22.8-33.0) D-Dimer 0.79mg/L FEU (<0.50) Sodium Level 141mEq/L (134-144) Potassium Level 3.8mEq/L (3.5-5.2) Chloride Level 108mEq/L (97-108) Carbon Dioxide Level 18mmol/L (18-29) Blood Urea Nitrogen 24mg/dL (8-27) Creatinine 1.11mg/dL (0.57-1.00) Estimat Glomerular Filtration Rate 68mL/min (>59) Glucose Level 170mg/dL (60-99) Calcium Level 9.3mg/dL (8.5-10.1) Magnesium Level 1.5mg/dL (1.6-2.6) Total Bilirubin 0.2mg/dL (0.0-1.2) Aspartate Amino Transf (AST/SGOT) 71U/L (0-50) Alanine Aminotransferase (ALT/SGPT) 61U/L (0-32) Alkaline Phosphatase 58U/L (25-165) Total Creatine Kinase 42U/L (21-215) Creatine Kinase MB 2.2ng/mL (0.0-5.3) Creatine Kinase MB % % (0.0-5.0) Troponin T < 0.010ug/L (0.0-0.011) Total Protein 6.7g/dL (6.4-8.4) Albumin 3.3g/dL (3.4-5.0) ECG Interpretation ECG Interpretation: Sinus tachycardia rate 105 RSR' pattern V1-V2 Lateral ST depressions - slightly more pronounced today No change from prior taken 01/07/17 Time: 14:28 Interpreted by: ED physician, Search Engine Optimization Specialist Normal ECG Interpretation: No acute ischemic changes ECG Interpretation: Repeat EKG during increase of CP unchanged. Time: 15:02 Interpreted by: ED physician X-Ray Chest Interpretation Chest Xray Interpretation: IMPRESSION: Minimally less prominent focus of previously identified left basilar opacity. Dictated by: Kamini Morales M.D. on 01/14/2017 at 15:19 Approved by: Kamini Morales M.D. on 01/14/2017 at 15:20 View: Portable, 1 view Interpretation / Wet Read by: Interpret - Radiologist Re-Eval/Medical Decision Med Decision/Clinical Course Unstable angina. Heparin and nitroglycerin drips initiated in the ER. Patient will need admission. Multiple calls with cardiology in order to help facilitate urgent evaluation and possible urgent PCI. At the time of The transport out of the emergency department the patient is on a nitroglycerin drip and is currently chest pain-free. Time of Eval: 15:00 Re-Evaluation/Progress Note: Pt's CP returned. EKG ordered. Informed pt of need for admission. Pt understands and agrees with plan for admission. All questions addressed. Time of Eval: 15:28 Re-Evaluation/Progress Note: Pt rechecked. No CP at current time. Time of Eval: 15:56 Re-Evaluation/Progress Note: Chest pain has returned. Dr. Shaw requesting nitro drip and interventional cardiology consult. Consultation #1: Referral / Consult Name: Sudhir Shaw MD Consulted With: Hospitalist Call Returned at: 15:27 Client Service Manager: Will see patient, Agrees with eval, Agrees with plan, Accepts admit Consultation #2: Referral / Consult Name: John Mart MD Consulted With: Cardiology Call Returned at: 15:36 Client Service Manager: Agrees with eval, Agrees with plan Note: Agrees that it is not a STEMI. There are more pronounced ST depressions today. Keep NPO. Start heparin, statin, metoprolol succinate 50 mg BID. Obtain echocardiogram in morning. Apply nitropaste. Consultation #3: Referral / Consult Name: Demar Flores MD Consulted With: Cardiology Call Returned at: 15:56 Client Service Manager: Agrees with eval, Agrees with plan Note: Is aware of the patient. Will consult if requested. Requests we discuss with Brittny for now. Consultation #4: Referral / Consult Name: John Mart MD Consulted With: Cardiology Call Returned at: 16:02 Client Service Manager: Agrees with eval, Agrees with plan Note: Will come see patient and contact Dr. Flores. Consultation #5: Referral / Consult Name: John Mart MD Call Returned at: 16:30 Client Service Manager: Agrees with eval, Agrees with plan Note: Will call Dr. Flores in to evaluate patient for likely cath today. Counseled Regarding: Diagnosis, Lab results, Need for admission Discharge & Departure Primary Impression: Unstable angina Disposition: ADMITTED TO HOSPITAL Discharge Condition All VS Reviewed: Yes Condition: Stable Referrals: Joey Duran DO (PCP) Crit Care Except Billable Proc Time Spent: 30-74 minutes Services Performed: Patient management by me, Time spent at bedside, Reviewing test results, Reviewing imaging, Discussing patient care, Documentation in record Critical Care Notes: 70 minutes Scribe Attestation Portions of this note were transcribed by Kiran Pickering. I, Dr. Jordan personally performed the history, physical exam and medical decision-making; I reviewed and confirmed the accuracy of the information in the transcribed note. copies to: Joey Duran Timothy S DO Jan 14, 2017 14:25 KIRAN PICKERING Jan 14, 2017 14:31
[2017-01-14] MEDS ORDERED: Nitroglycerin 2% 1 Gm Ointment TOPICAL ONE (14:35)
[2017-01-14] MEDS ORDERED: Ondansetron 2 mg/mL 2 mL Inj IVPUSH ONE (14:35)
[2017-01-14 14:43] LABS: BASOPHILS % (AUTO) 0.5 % (0-3); EOSINOPHILS % (AUTO) 4.6 % (0-5); MONOCYTES % (AUTO) 12.1 % (4-12); Mean Corpuscular Hemoglobin 30.6 pg (27.0-35.0); Mean Corpuscular Volume 89.4 fL (81-100); Platelet Count 265 bil/L (150-400)
[2017-01-14 14:58] LABS: D-Dimer 0.79 mg/L FEU (<0.50); INR 0.88 ratio
[2017-01-14 15:04] LABS: TROPONIN T < 0.010 ug/L (0.0-0.011)
[2017-01-14 15:14] LABS: Creatine Kinase 42 U/L (21-215); Magnesium 1.5 mg/dL (1.6-2.6)
[2017-01-14] MEDS ORDERED: Heparin 25K Unit/500mL 0.45 NS 25,000 UNIT in IV Premix 1 EACH IV ONE (15:15)
[2017-01-14] MEDS ORDERED: Heparin 5,000 Unit/mL Inj IVPUSH ONE (15:15)
[2017-01-14] MEDS ORDERED: Magnesium Sulf 2 Gm/50mL Water 2 GM in IV Premix 1 EACH IV ONE ×2 (15:20→15:40)
--- NOTE | 2017-01-14 15:22 | DRSVH ---
PROCEDURE: X-RAY CHEST ONE VIEW, PORTABLE ([id number]) INDICATIONS: chest pain TECHNIQUE: One view of the chest was acquired. COMPARISON: [facility], CR, XR CHEST 2VW, 01/09/2017, 12:23. FINDINGS: Surgical changes and devices: Surgical clips are present overlying the lower right chest. Lungs and pleura: Previous area of left basilar streaky opacity with minimally less prominent. Mediastinum: Mediastinal contours appear normal. Heart size is normal. Bones and chest wall: No suspicious bony lesions. Overlying soft tissues appear unremarkable. IMPRESSION: Minimally less prominent focus of previously identified left basilar opacity. Dictated by: Kamini Morales M.D. on 01/14/2017 at 15:19 Approved by: Kamini Morales M.D. on 01/14/2017 at 15:20
[2017-01-14] MEDS ORDERED: Polyethylene Glycol (PEG) 17 Gm Powder PO PRN (15:40)
[2017-01-14] MEDS ORDERED: Ondansetron 2 mg/mL 2 mL Inj IVPUSH PRN ×3 (15:40→21:30)
[2017-01-14] MEDS ORDERED: Alum-Mag Hydrox-Simeth 30 mL Suspension PO PRN ×2 (15:40)
[2017-01-14] MEDS ORDERED: MeTOProlol XL 50 mg ER24 Tablet PO ONE (15:45)
[2017-01-14] MEDS ORDERED: Nitroglycerin 50 mg/250 mL D5W 50,000 MCG in IV Premix 1 EACH IV SCH (15:46)
[2017-01-14] MEDS ORDERED: Ertapenem Inj 1,000 MG in 0.9% Sodium Chloride 50 ML IV ONE (15:55)
[2017-01-14] MEDS ORDERED: LOSA50TA37 PO (16:12)
[2017-01-14] MEDS ORDERED: NAPR250T PO (16:13)
[2017-01-14] MEDS ORDERED: NAPR220C16 PO (16:13)
[2017-01-14] MEDS ORDERED: DIPH25CA6 PO (16:14)
--- NOTE | 2017-01-14 16:26 | PCM.HPMED ---
Subjective Date of Service Jan 14, 2017 Primary Provider: Admitting Physician: Primary Care Physician: Joey Duran DO Attending Physician: Admit Status: From the Emergency Department, Full Admit, [facility] Telemetry Chief Complaint: Chest pain History of Present Illness: This is a pleasant 68-year-old female with history of coronary artery disease and PCI 2 in the past. Her last angiogram was in 2011. Bedtime she had an obtuse marginal stented and an RCA was noted to be 80-90% stenosed but not stented. The last stress test was within the last 10 months and was unremarkable. The patient was recently admitted for fatigue and hypercalcemia. She was diagnosed with a possible presumptive gammopathy with workup pending. She was discharged 2 days ago with her calcium corrected. She also had hypomagnesemia and this was also corrected. The patient developed 2 episodes of chest pain last night which are transient. These were at rest. This morning she developed another episode of chest pressure with radiation up into the neck which was improved with 1 sublingual nitroglycerin. She had a second episode took another nitroglycerin and had partial improvement. Family learned of this and called 911. She had accompanying diaphoresis as well as radiation of pain to neck. The pain was not pleuritic. It was all anterior and posterior. The pain did not get worse with any particular movement. She was found in the emergency department to be uncomfortable but had normal vital signs. She did have ST depressions in lateral leads V3 6. She was started on nitro paste and heparin drip was ordered. She was given aspirin in route. Her pain improved for a short time but then began to start her again. A neck strain for up was ordered. She was given a Plavix load. She was given morphine. The ED physician was discussing the case with interventional anginal cardiology. She appears to be suffering from unstable angina versus early acute coronary syndrome. Review of Systems: She denies nausea, vomiting, abdominal pain, diarrhea, dysuria. No rhinorrhea. No cough or fevers or chills. Also reviewed and otherwise unremarkable except as noted in history of present illness Allergies Coded Allergies: TAPE (Verified Allergy, Severe, RASH,BLISTERS,SKIN PEELING, 01/26/12) codeine (Verified Allergy, Severe, 03/10/09) latex (Verified Allergy, Severe, ELASTIC - RASH, 01/26/12) varenicline tartrate (Verified Allergy, Severe, Hives, 01/26/12) Home Medications Scheduled Aspirin Chew (Aspirin Chew) 81 Mg Chew 81 MG PO DAILY Atorvastatin (Lipitor) 40 Mg Tablet 40 MG PO HS Carvedilol (Carvedilol) 6.25 Mg Tablet 6.25 MG PO BID Clopidogrel (Clopidogrel) 75 Mg Tablet 75 MG PO DAILY Losartan Potassium (Losartan Potassium) 50 Mg Tablet 50 MG PO BID Magnesium Oxide (Magnesium) 400 Mg Capsule 400 MG PO DAILY Multivitamin (Multi Vitamin Daily) 1 Each Tablet 1 EACH PO DAILY Nortriptyline (Nortriptyline) 25 Mg Capsule 25 MG PO HS Potassium Chloride (Potassium Chloride) 20 Meq Tab.er.prt 20 MEQ PO BID TAKE WITH FOOD Scheduled PRN Nitroglycerin (Nitroglycerin) 0.3 Mg Tab.subl 0.3 MG SL Q5MIN PRN PRN For Chest Pain Tramadol (Tramadol) 50 Mg Tablet 50 MG PO Q6H PRN PRN For Pain PMH Coronary artery disease with history of stenting 2 in the past. Essential hypertension Dyslipidemia Hypercalcemia Hypomagnesemia A possible monoclonal gammopathy which is currently being evaluated. Family History Positive for CAD Social History Hx Alcohol Use: No Hx Substance Use: No Smoking Status: Current Every Day Smoker Living Arrangement: Alone Exam Vital Signs Vital Sign - Last Date Time Temp Pulse Resp B/P Pulse Ox O2 Delivery O2 Flow Rate FiO2 01/14/17 15:34 100 13 136/54 99 Room Air 01/14/17 14:58 2 01/14/17 14:22 36.8 Exam Oriented 3. No distress. Fluent speech. Normal affect. Normal skull. Normal nose and ears. Anicteric sclera, symmetric pupils Oropharynx is unremarkable, no facial droop. Neck is supple, normal thyroid. No adenopathy. Lungs are clear, normal effort rate. Heart is regular without murmur gallop or rub. Abdomen soft, nondistended or tender. Extremities are free of pedal edema. Good radial and pedal pulses. Skin is free of rash, lesions. No petechiae or ecchymosis. Joints are grossly normal. Cranial nerves are grossly normal. Motor strength is normal in all extremities. Normal muscular tone. Lab and Diagnostics Result Diagram: 01/14/17 1400 01/14/17 1400 X-Rays, CTs and MRIs Chest x-ray is unremarkable 12-lead ECG ECG reveals normal sinus rhythm with ST depressions in leads V34 and 5 Assessment & Plan 1. Unstable angina, present on admission and active. We will continue with dual antiplatelet therapy, beta blockade, heparin drip as well as a nitro drip. Stat consult to Gen. and intervention cardiology. 2. Hypertension, present on admission and uncontrolled. We will use debilitated and her neck was drip as outlined above and follow clinically. 3. Dyslipidemia, present on admission and stable. Continue her statin. 4. Coronary artery disease, present on admission and likely active. Plan is as noted on item #1. 5. Hypomagnesemia, pleasant admission and active. We will replete and follow. 6. 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 Workup is pending. Patient is full resuscitation. She is admitted inpatient status with an anticipated length of stay of 2 nights. Pain Evaluation: Adequate Pain Control Resuscitation Status: CPR: Attempt Resuscitation Time spent 40 minutes Sudhir Shaw MD Jan 14, 2017 16:26
--- NOTE | 2017-01-14 17:28 | CONS ---
[address] [address] CONSULTATION REPORT PATIENT: HENOK CHU : 1940 MR#: [id number] ADMIT: 01/14/2017 JOB ID: [id number] DATE OF SERVICE: 01/14/2017 CARDIOLOGY CONSULTATION: REASON FOR CONSULT: For the evaluation of jaw pain, chest pain. CHIEF COMPLAINT: Jaw pain, chest pain. PRESENT HISTORY: This 76-year-old female who has a history of coronary artery disease status post 2.75 x 8 mm drug coated stent placement to the ostial first obtuse marginal branch in January 26, [address] Osorio, also had about 70% to 80% distal right coronary artery disease at that time which is being managed medically, history of essential hypertension, hyperlipidemia, persistent tobacco abuse, recent hospitalization for hypercalcemia with hypokalemia and hypomagnesemia, history of right breast cancer status post mastectomy as well as radiation treatment in 2001, who was recently in the hospital because of hypercalcemia and other electrolyte abnormalities, came to the ED today because of recurrent jaw pain and chest pain. According to the patient, yesterday evening around 9:00 she developed jaw pain as well as chest discomfort. On a scale of 1-10, it was about 6-7 in intensity. She had some sweating. No nausea, vomiting, that time. She took total two sublingual nitroglycerin and her chest pain subsided. Duration was less than 10 minutes. She slept. This morning, she woke up. Her blood pressure was okay. Again afternoon she developed similar pain but it was very intense. She never had this kind of intensity before. She has some sweating. She was nauseated, without any vomiting. She took two sublingual nitroglycerin, which did not help, then she called her son, who called EMS, and she was given more sublingual nitroglycerin spray and aspirin. Her chest pain got subsided but in the ED she developed chest pain again for which now she is being planned to start IV nitroglycerin drip. At present she is not having chest pain. No fever, cough, expectoration, stroke-like symptoms, or bleeding. She has a chronic anemia but denies any active bleeding. She had a left heart catheterization in January 2012 as perfusion scan revealed lateral wall ischemia. At that time left main and LAD did not have any critical disease. Diagonal branch has about 50% disease. First obtuse marginal branch has about 99% ostial disease. Right coronary artery distally has about 70% to 80% disease. LV ejection fraction was 70% to 75%. Subsequently the patient underwent drug coated stent placement to the obtuse marginal branch. Her electronic game developer is Dr. Eaton. PAST MEDICAL HISTORY: History of coronary artery disease details as stated above, essential hypertension, hyperlipidemia, history of right breast cancer status post mastectomy plus radiation in 1999, recent admission for hypercalcemia, hypomagnesemia, hypokalemia, and possible monoclonal gammopathy for which she is being worked up by Dr. Awad. ALLERGIES: THE PATIENT IS ALLERGIC TO TAPE, CODEINE, LATEX, AND . HOME MEDICATIONS: 1. Aspirin 81 mg daily. 2. Atorvastatin 40 mg q.h.s. 3. Carvedilol 6.25 mg b.i.d. 4. Plavix 75 mg daily. 5. Losartan 50 mg b.i.d. 6. Magnesium oxide 400 mg daily. 7. Multivitamin. 8. Nortriptyline 25 mg q.h.s. 9. Potassium chloride 20 mEq b.i.d. SOCIAL HISTORY: The patient still smokes. Has been smoking for last 60 years. Denies any alcohol abuse. FAMILY HISTORY: Positive for coronary artery disease. REVIEW OF SYSTEMS: Ten point review of systems was obtained and negative except as stated above. PHYSICAL EXAMINATION: Blood pressure 147/62, heart rate 86, respiratory rate 18, oxygen saturation 98%. HEENT: No significant jaundice. Neck: No apparent JVP. No obvious carotid bruits. Chest: Decreased air entry at the bases. No obvious crepitation or rhonchi. CVS: S1, S2 normal. No S3, no S4. Soft ejection systolic murmur at the base. Abdomen: No obvious pulsatile mass or hepatosplenomegaly. Extremities: Mild bilateral pedal edema. Vascular: No evidence of critical limb ischemia. 1[employer]: Alert. Oriented to time, place, and person. Able to move all the four extremities. She is hard of hearing as well. LABORATORY: Today WBC 9.9, hemoglobin 10.1. The patient is chronically anemic. In January 2012 hemoglobin was about 9.0. Platelets 265, MCV 89.4. INR 0.88. D-dimer 0.79. Sodium 141, potassium 3.8, BUN 24, creatinine 1.11, magnesium 1.5. Total bilirubin 0.2, AST 71, ALT 61, CPK of 42. Troponin-T less than 0.010. X-ray chest: Minimally less prominent focus of previously identified left basilar opacity. Heart size normal. Abdomen CT on January 10, 2017: Prominent atherosclerotic calcification of the aorta and its branches. Bladder calculus was seen. Stranding around the kidneys. In December 2011 carotid artery evaluation revealed bilateral 50% to 69% stenosis. EKG today revealed sinus rhythm with RSR-complex in V1 to V2 and 1-1.[address] depression in lead V3 to V6 as well as L1 and aVL which are old. It was seen in January 07, 2017 EKG as well, but that time it was less prominent. QTc 457 msec. SD interval 169 msec. ASSESSMENT AND PLAN: Recurrent resting typical jaw pain and chest discomfort suggestive of unstable angina with worsening ST depression in anterior lateral leads. The patient has known coronary artery disease status post drug coated stent placement to the obtuse marginal branch in January 2012. At that time, she had a borderline diagonal as well as about 70% to 80% distal right coronary artery disease. At present, her first set of troponin normal. She has ongoing risk factors. She is a chronic smoker and still smokes. She is high risk for worsening coronary artery disease. She is having recurrent chest pain, however in the ED at present we are able to control the chest pain. She has been started on IV nitroglycerin drip. Will recommend treating her as per unstable angina or non ST-T MN protocol. Will recommend serial CPK, troponin. Optimize blood pressure. Consider high intensity statin as well as beta cindi. She will need invasive workup to evaluate her underlying coronary artery disease in anticipation of revascularization. She has chronic anemia. Her hemoglobin is not getting worse. Her creatinine is 1.1. Clinically, she does not appear to be in gross congestive heart failure. She has recent hypercalcemia and got treated. Maybe she has some volume depletion. I discussed my plan and thought process with the patient and her family. She has history of diffuse atherosclerotic vascular disease. She is going to be high risk for left heart catheterization. Benefits and risks, which include but not limited to risk of bleeding, groin complication, myocardial infarction, stroke, , renal insufficiency, and peripheral vascular complication, etc. in details discussed with the patient and her family. They agreed. I discussed the case with our farm mortgage agent, Dr. Flores. Dr. Flores will evaluate the patient in the ED and will decide about timing of left heart catheterization. Further plan and management I will leave up to Dr. Flores. Thanks for the cardiology consult. TIME: Total time spent today about 75 minutes including having discussion with Dr. Flores, as well as hospitalist team and family members.
--- NOTE | 2017-01-14 18:17 | NUR ---
Admit note Patient a/o x 4, denies chest pain, sob or nausea. Nitro gtt and Heparin gtt infusing apon arrival to floor and Mg rider finished. Patient given Plavix this evening per MD orders, otherwise npo for poss heart cath tonight. Admit done prior to arrival. Patient oriented to call light, tv, phone, bathroom and poc. Line Staker at bedside to discuss poc with patient and family.
[2017-01-14] MEDS ORDERED: Heparin 1,000 Units/500 mL NS Premix IV ONE (18:58)
[2017-01-14] MEDS ORDERED: Heparin 1,000 Unit/mL 10 mL Inj ONE (18:59)
[2017-01-14] MEDS ORDERED: Heparin 10,000 Unit/1,000 mL NS Premix IV ONE (18:59)
[2017-01-14] MEDS ORDERED: fentaNYL-PF 50 mCg/mL 2 mL Inj ONE ×2 (19:32→19:43)
[2017-01-14] MEDS ORDERED: Atropine 1 mg/10 mL (Code) Syringe ONE (19:43)
--- NOTE | 2017-01-14 20:05 | NUR ---
To cath lab radiological technologist Off unit to cath lab radiological technologist around 1909 in stable condition.
[2017-01-14] MEDS: Nitroglycerin 50 mg/250 mL D5W Premix IV SCH (21:00)
[2017-01-14] MEDS ORDERED: Sodium Chloride LOK Flush 10 mL Syringe IVFLUSH PRN (21:30)
[2017-01-14] MEDS ORDERED: 0.9% Sodium Chloride 250 ML BOLUS IV PRN (21:30)
[2017-01-14] MEDS ORDERED: Atropine 1 mg/10 mL (Code) Syringe IVPUSH PRN (21:30)
[2017-01-14] MEDS ORDERED: 0.9% Sodium Chloride 400 ML (4 HRS) IV ONE (21:30)
[2017-01-14 22:40] LABS: APPEARANCE,URINE CLEAR (CLEAR,HAZY); COLOR,URINE STRAW (YELLOW); OCCULT BLOOD,URINE TRACE (NEGATIVE); UROBILINOGEN,URINE NORMAL (NORMAL)
[2017-01-14] MEDS ORDERED: Heparin 25K Unit/500mL 0.45 NS 25,000 UNIT in IV Premix 1 EACH IV SCH (22:40)
[2017-01-14] MEDS ORDERED: Heparin Initial Bolus IVPUSH ONE (22:40)
[2017-01-14] MEDS ORDERED: Heparin Protocol Boluses IVPUSH PRN (22:40)
[2017-01-14] MEDS ORDERED: 0.9% Sodium Chloride 1,000 ML IV SCH (22:45)
[2017-01-15] VITALS (7 sets, daily range): BP systolic 124–179; BP diastolic 45–64; PULSE 64–86; RESP 20–25; O2SAT 95–98
--- NOTE | 2017-01-15 00:28 | CS94 ---
[address] [address] DIAGNOSTIC CARDIAC CATHETERIZATION PATIENT: HENOK CHU : 1940 MR#: [id number] ADMIT: 01/14/2017 JOB ID: [id number] SERVICE DATE: 01/14/2017 PRODUCTION STAGE MANAGER: Demar Flores MD PROCEDURES: 1. Coronary angiogram--Urgent. 2. Left heart catheterization (LHC): Pressure measurement. CLINICAL DETAILS: This 76-year-old woman presents to the cardiac catheterization laboratory for coronary angiogram after she was admitted this afternoon with several episodes of prolonged severe chest discomfort consistent with coronary ischemia. She has been generally well until the onset of chest discomfort 24 hours ago with several prolonged episodes of pain that cleared. She then had recurrent discomfort this afternoon while at rest. It was relieved by NTG SL. There was concern because of several recurrent episodes of chest discomfort, but she is pain-free currently on NTG IV 5 mcg/minute as well as ASA, chronic Plavix, p.o. metoprolol and IV heparin. ECG shows lateral ST depression and there is also [address]-elevation in lead AVR and lead V1 in which leads ST-elevation was minimally present previously but more now. Initial troponin negative but follow up troponin minimally elevated at 0.015. She has a history of known CAD with a prior presentation with abnormal perfusion scan in 2011 with lateral ischemia that led to coronary angiogram and placement of a 2.75 x 8 mm stent in the ostium of OM-1. Her most recent follow up perfusion scan in fall 2015 showed no ischemia and intact LV function. A prior echocardiogram was likewise unremarkable. UNDERLYING CORONARY ARTERY DISEASE RISK FACTORS: Include hypertension, hyperlipidemia, and ongoing one pack per day cigarette smoking. PROCEDURAL DETAILS: She was evaluated by Cardiology consultation, and coronary angiogram recommended. I met with her and her family prior to the procedure. We discussed the recommendation to proceed with urgent coronary angiogram for definitive diagnosis and to guide treatment decisions, including medical therapy; PCI; or coronary bypass surgery if indicated. We discussed the procedure including possible risks and complications. We discussed bleeding, infection, blood clot; as well as injury to nerve, artery, vein and/or kidney; and also arrhythmia, drug reaction; or others. We discussed treatment as needed including surgery, pacemaker, transfusion. We discussed more serious complications that are possible including stroke, heart attack, cardiac arrest, and emergency surgery including transfer for coronary bypass surgery (CAD). Following questions and discussion, she signed informed consent to proceed. She was brought to the catheterization laboratory NPO where she was prepped sterilely and draped. CORONARY ANGIOGRAM: Arterial access was obtained without difficulty in the right common femoral artery using fluoroscopic localization over the femoral head; with lidocaine local anesthesia; and modified Seldinger technique to insert a 10 cm, 6-Armenian side-arm sheath. A Wholey wire was used to pass the distal aorta without difficulty; and catheters were exchanged thereafter over a long 0.035 inch J tipped guidewire. For angiography, a 6-Armenian JL-4 diagnostic catheter engaged the left coronary artery; and a 6-Armenian JL-4 catheter engaged the right coronary artery. LHC: A 6-Armenian pigtail catheter was used to cross the aortic valve into the left ventricle where pressure measurements were made. LV angiogram was deferred. Procedure without difficulty. The patient tolerated the procedure well. No complications. A side-arm sheath angiogram shows adequate access in the RFA for closure device. Note there is calcification and plaquing in the RFA immediately distal to the insertion site; and there is disease of the SFA also. Arterial hemostasis was obtained without difficulty using a 6-Armenian StarClose clip. The patient is transferred stable and chest-pain free from the catheterization laboratory to the CCU unit for ongoing care including by the primary hospitalist team. I discussed the findings, impressions, and management considerations with the patient and her family; as well as with the hospitalist team (Dr. Gonzales); and with Cardiology (Dr. Mart). FINDINGS: LMCA: 70-80% focal distal LMCA lesion noted. This is a significant LMCA obstruction which is eccentric and heavily calcified. It involves the ostium of the LCX. Compared to the images of the January 2012 catheterization, LMCA disease has progressed substantially. LAD: Note diffuse atherosclerotic plaquing without angiographically severe lesions, except for 70-80% focal ostial narrowing of the diagonal-2 (similar to the 2011 catheterization). The left anterior descending coronary artery is a moderate to large size transapical artery with two medium-sized diagonals. LCX: Note severe 95% heavily calcified, eccentric proximal LCX lesion (JAKOB-3 flow). This appears to be the likely culprit lesion for her clinical syndrome. Distal to this, the ostial stent of moderate to large-sized OM-2 is fully patent. Mid and distal LCX has diffuse atherosclerotic plaquing with two areas of tubular narrowing, 60-70%. The ostial LCX may be significantly narrowed in conjunction with the distal LMCA lesion. RCA: Dominant. The RCA is severely diffusely diseased and narrowed throughout its length including proximal 70-80% disease and mid RCA 80% narrowing. The PDA is small to medium and the RPLB is small and not much improved after NTG IC. LHC: LVED 23 mmHg; no systolic gradient on pullback across the aortic valve. CONCLUSIONS: 1. CAD--severe multi-vessel CAD including 70-80% distal LMCA; and ostial LCX; and subtotal proximal LCX; and 70% medium size DX-2; and severe diffuse RCA disease. 2. Elevated LVED. 3. Peripheral vascular disease including SFA. 4. ACS--acute coronary syndrome with NSTEMI. RECOMMENDATIONS: 1. ECASA-indefinitely. 2. COMMENT: She presents with severe symptoms initially unstable but now pain-free on heavy medical therapy. Her coronary disease has progressed substantially since 2012. The most severe lesion and apparent culprit currently is the new subtotal proximal LCX lesion. She also has severe LMCA lesion distal LMC disease. The RCA is severely diffusely diseased and somewhat worse than previously. There is JAKOB-3 flow throughout. There is heavy calcification throughout. Overall, she has surgical coronary anatomy. Intervention of the LCX is high risk and technically difficult given the LMCA lesion with ostial LCX involvement and heavy calcification raising consideration of rotablator. At the same time, anticipation of coronary artery bypass surgery (CAD) may be difficult given that she was just discharged after an admission with calcium 15 that led to Oncology consultation and raised a strong possibility of underlying malignancy. She has prior breast cancer, treated with lumpectomy and radiation therapy (right chest) in 1999, with no evident recurrence. 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 A CT of the chest showed a spiculated lung mass that was not considered overtly malignant. Review of all these considerations and her current stable status, the decision was made to defer PCI at this moment in view of consultation with Oncology and CT surgery. 3. OMT--guideline directed optimal medical therapy including aspirin; continue her chronic Plavix but reassess in view of possible upcoming cardiac surgery; beta-cindi; high-intensity statin; resume IV heparin infusion; and NTG IV including for her poorly controlled systolic hypertension (SBP 175).
[2017-01-15] MEDS: Heparin 25K Unit/500mL 0.45 NS 25,000 UNIT in IV Premix 1 EACH IV SCH (00:59)
[2017-01-15] MEDS ORDERED: Heparin Initial Bolus IVPUSH ONE (01:00)
[2017-01-15] MEDS ORDERED: Heparin Protocol Boluses IVPUSH PRN (01:30)
[2017-01-15] MEDS ORDERED: Heparin 25K Unit/500mL 0.45 NS 25,000 UNIT in IV Premix 1 EACH IV SCH (01:30)
--- NOTE | 2017-01-15 02:32 | NUR ---
post [employer] received pt from [employer] at 2044, right groin dressing cdi, pedal pulses present, pt coop with post cath activity, post cath checks done per protocol, pt a/o times three, coop pleasant, non pitting ankle/pedal edema, denies n/v, denies sob, mrsa swab sent to lab, denies cp, tele= sr intermittent first degree avb, hr 70's, md aware of pt's bp 170's/70 upon arrival to ccu and now down to sbp of 150's, ntg gtt 25mcg/min, ns ivf per post cath orders, pt voiding well per bp, urine spec sent to lab, no bleeding noted, cardiac heparin gtt started at 0100 per orders, see assessment charting, plan; finish cath checks,
[2017-01-15 06:09] LABS: BASOPHILS % (AUTO) 0.6 % (0-3); EOSINOPHILS % (AUTO) 4.8 % (0-5); MONOCYTES % (AUTO) 10.3 % (4-12); Mean Corpuscular Hemoglobin 29.6 pg (27.0-35.0); NEUTROPHILS % (AUTO) 68.7 % (40-74); Platelet Count 258 bil/L (150-400)
[2017-01-15 06:50] LABS: TROPONIN T 0.114 ug/L (0.0-0.011)
--- NOTE | 2017-01-15 06:51 | NUR ---
LABS CMP and TROP results just released, reported to day shift rn,
--- NOTE | 2017-01-15 09:17 | PCM.PNMED ---
Subjective Date of Service Jan 15, 2017 Subjective She is doing well this morning. No chest pain overnight. She is having her nitroglycerin drip weaned. No headache. Her blood pressures were high after her angiogram last evening. This did reveal multivessel disease likely most amenable to coronary bypass grafting. She denies any nausea, no dyspnea., No diaphoresis. No abdominal pain. No overnight events noted. Exam Vital Signs Vital Sign - Last Date Time Temp Pulse Resp B/P Pulse Ox O2 Delivery O2 Flow Rate FiO2 01/15/17 07:20 36.6 64 24 136/50 98 Room Air 01/14/17 14:58 2 Intake and Output 01/14/17 01/14/17 01/15/17 Cumulative From/Thru 15:00 23:00 07:00 01/14/17 14:22 - 01/15/17 05:08 Intake Total 0 ml 1049 ml 1049 ml Output Total 1450 ml 1450 ml Balance 0 ml -401 ml -401 ml Intake Oral 0 ml 120 ml 120 ml IV Total 929 ml 929 ml Output Urine Total 1450 ml 1450 ml # Voids 0 0 # Bowel Movements 0 0 Exam Alert and oriented -3, no distress. Fluent speech Anicteric sclera. Lungs are clear with normal rate and effort Heart is regular without murmur gallop or rub Abdomen soft nontender, flat Extremities are free of edema. Skin is free of rash or lesions. IVs and Medications Medications Reviewed: Medications were reviewed in detail Lab and Diagnostics Result Diagram: 01/15/17 0555 01/15/17 0555 X-Rays, CTs and MRIs Chest x-ray is unremarkable 12-lead ECG ECG reveals normal sinus rhythm with ST depressions in leads V34 and 5 Assessment & Plan 1. Unstable angina, present on admission and active. Angiogram indicates multiple vessel disease which appears to be amenable to surgical approach but not PCI. We will discuss the best management plan with Dr. Flores over interventional cardiology. We will maintain her on heparin drip. Anticipate possible discharge to [place] for cardiothoracic evaluation. 2. Hypertension, present on admission and improved. We will follow clinically as she has her nitroglycerin down titrated. 3. Dyslipidemia, present on admission and stable. Continue her statin. 4. Coronary artery disease, present on admission and likely active. Plan is as noted on item #1. 5. Hypomagnesemia, pleasant admission and improved. We will follow. 6. 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 Workup is pending. Patient is full resuscitation. She is admitted inpatient status with an anticipated length of stay of 2 nights. Resuscitation Status: CPR: Attempt Resuscitation Sudhir Shaw MD Jan 15, 2017 09:17
[2017-01-15] MEDS ORDERED: Potassium Chloride 20 mEq SR Tablet PO ONE (09:20)
[2017-01-15] MEDS: Heparin Protocol Boluses IVPUSH PRN ×2 (13:55→20:06)
[2017-01-15] MEDS: MeTOProlol XL 50 mg ER24 Tablet PO SCH (15:17)
--- NOTE | 2017-01-15 15:22 | DRSVH ---
[facility] [address] [place] [address] Echocardiogram Report Name: HENOK CHU SStudy Date : 01/15/2017 Height: 65 in Hospital Exam Location: [facility] Weight: 137 lb Gender: Female BSA: 1.7 m2 : 1940 Age: 76 yrs BP: 143/53 mm Hg Reason For Study: Angina Ordering Physician: HOSPITALIST [facility] Performed By: Freida Baltazar Referring Physician: Shane Rivas Interpretation Summary The left ventricle is normal in size. The ejection fraction is estimated to be 65-70%. There has been no significant change in LV EF since the previous study. The right ventricle is normal in size and function. The mitral valve leaflets are moderately calcified. There is mild mitral stenosis. No significant mitral valve stenosis. There is mild mitral regurgitation. Compared to the prior echo study, there has been an increase in the severity of mitral regurgitation. Mild atherosclerotic plaque(s) in the aortic arch. Procedure: A two-dimensional transthoracic echocardiogram with color flow and Doppler was performed. The study quality was technically good. Comparison is made with the echocardiogram of 03/31/2016. The patient was in normal sinus rhythm during the exam. Left Ventricle: The left ventricle is normal in size. Left ventricular wall thickness is mildly increased. There is no thrombus. The ejection fraction is estimated to be 65-70%. There has been no significant change since the previous study. There are no focal wall motion abnormalities. E/A reversal seen. Right Ventricle: The right ventricle is normal in size and function. Atria: The left atrium is mildly dilated. The left atrium has mildly increased in size since the prior echo exam. The right atrium is mildly dilated. There has been no significant change since the previous study. A prominent eustachian valve is noted. The interatrial septum is intact with no evidence for an atrial septal defect. Mitral Valve: The mitral valve leaflets are moderately calcified. There is mild to moderate mitral annular calcification. There is mild mitral stenosis. No significant mitral valve stenosis. There is mild mitral regurgitation. Compared to the prior echo study, there has been an increase in the severity of mitral regurgitation. Aortic Valve: The aortic valve is trileaflet. The aortic valve is mildly calcified. There is discrete nodular thickening of the left coronary cusp. Leaflet mobility is minimally reduced. There is no hemodynamically significant valvular aortic stenosis. There is trace aortic regurgitation. There has been no significant change since the previous study. Tricuspid Valve: The tricuspid valve leaflets are thickened and/or calcified, but open well. There is trace tricuspid regurgitation. The right ventricular systolic pressure is estimated at 30 mmHg assuming a right atrial pressure of 3 mm Hg. Compared to the prior echo exam, there has been no change in TR severity. Pulmonic Valve: The pulmonic valve is not well seen, but is grossly normal. There is trace pulmonic regurgitation. Great Vessels: The aortic root is normal size. The ascending aorta is normal in size. Mild atherosclerotic plaque(s) in the aortic arch. The IVC is of normal diameter and collapses greater than 50% with a sniff. This suggests a low right atrial pressure of 3 mm Hg. Pericardium/ Pleura There is no pericardial effusion. There is an anterior echo-free space consistent with a fat pad. There is no pleural effusion. MMode/2D Measurements & Calculations LVIDd: 4.5 cm RA long axis LVOT diam LVIDs: 2.9 cm LA A2 area: 16.5 cm FS: 36.4 % LA A4 area: 15.4 cm RA area asc Aorta IVSd: 1.2 cm LA length (vol): 4.7 cm Diam: 3.6 cm LVPWd: 1.1 cm LA vol: 45.9 ml : 16.3 cm LA vol index RA vol: 45.8 ml RA : 27.3 ml/m2 : 27.2 mm2 LV johnson. diameter/BSA LV sys. diameter/BSA TAPSE: 2.4 cm (cm/m^2): 2.7 (cm/m^2): 1.7 Doppler Measurements & Calculations Ao V2 max MVA(VTI) TR max yong MV V2 mean: 107.9 cm/sec : 157.6 cm/sec : 2.4 cm2 : 260.1 cm/sec MV mean P.2 mmHg Ao max P.9 mmHg TR max PG MV V2 VTI: 42.8 cm Ao mean PG : 27.1 mmHg PA V2 max LVOT Max Yong : 90.2 cm/sec : 117.3 cm/sec PA mean PG GERMÁN(I,D): 2.8 cm : 2.0 mmHg sev ratio: 0.78 Ao V2 mean LV V1 max PG PA V2 mean GERMÁN indexed to BSA : 125.7 cm/sec : 67.2 cm/sec (cm^2/m^2): 1.6 Ao V2 VTI: 37.7 cm LV V1 VTI PA pr(Accel) : 29.2 cm : 12.2 mmHg GERMÁN(V,D): 2.7 cm2 Reading Physician:PM
--- NOTE | 2017-01-15 16:01 | NUR ---
PCC Status Patient changed to PCC status @ 1530. Nitro gtt infusing at a fixed rate of 5mcg/min per clinical informaticist request, no c/o cp/pressure so far during shift. BP stable, SR 70's. Family at the bedside.
--- NOTE | 2017-01-15 16:28 | NUR ---
Social Work: Initial Assessment/Multidisciplinary Rounds D: Per EMR review, pt is a 76 year old female admitted for unstable angina. Pt has [employer]. Pt has no LTC or VA benefits. PCP is Joey Duran DO. NOK is Cande Hernandez, dtr, . Advanced directives not completed- pt confirms that she has information at home. Readmit score is low, 2/8. Pt discussed in multidisciplinary rounds. Capacity for self care discussed; pt lives at home with her son and is I with ADLs. CONTOUR GRINDER met with patient at bedside. Social work role explained, contact information and discharge planning checklist provided. See initial assessment. Pt lives in [place] with her son. She is I at baseline, owns a cane and walker, and drives. Pt uses a cane indoors and walker outdoors. Pt is I with all ADLs and self-care and states she lives in a single-story home with two steps to enter. Pt states that she has never had HH or skilled rehab. 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 Pt states that "they help each other." Pt's son helps with housekeeping and pt helps her son with appointments and management of affairs. A: Pt who lives at home with her son and is I with ADLs P: Anticipate pt to discharge home, children to transport via POV. CONTOUR GRINDER to continue to follow to assess for unmet needs. CHELSEA Brush Addendum: 01/15/17 at 1632 by MOOSE RUBALCAVA Amended: Links added.
--- NOTE | 2017-01-15 19:11 | PCM.DC.MED ---
Discharge Summary Date of Service Jan 15, 2017 Dates of Hospitalization Date of Hospital Admission Jan 14, 2017 at 16:28 Date of Discharge: Jan 15, 2017 Providers: Admitting Physician: Sudhir Shaw MD Primary Care Physician: Joey Duran DO Attending Physician: Sudhir Shaw MD Diagnosis at Time of Discharge Diagnosis at Time of Discharge 1. Unstable angina, present on admission and active. Angiogram indicates multiple vessel disease which appears to be amenable to surgical approach but not PCI. We will discuss the best management plan with Dr. Flores over interventional cardiology. We will maintain her on heparin drip. Anticipate possible discharge to [facility] for cardiothoracic evaluation. 2. Hypertension, present on admission and improved. We will follow clinically as she has her nitroglycerin down titrated. 3. Dyslipidemia, present on admission and stable. Continue her statin. 4. Coronary artery disease, present on admission and likely active. Plan is as noted on item #1. 5. Hypomagnesemia, pleasant admission and improved. We will follow. 6. 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 Workup is pending. Consultations Dr. Flores, interventional cardiology Procedures XRay, CTs & MRIs Chest x-ray is unremarkable ECG 12 Lead ECG reveals normal sinus rhythm with ST depressions in leads V34 and 5 Cardiac Echo Impression Echocardiogram Report Name: HENOK CHU SStudy Date : 01/15/2017 Height: 65 in Hospital Exam Location: [facility] Weight: 137 lb Gender: Female BSA: 1.7 m2 : 1940 Age: 76 yrs BP: 143/53 mm Hg Reason For Study: Angina Ordering Physician: HOSPITALIST [facility] Performed By: Freida Baltazar Referring Physician: Shane Rivas Interpretation Summary The left ventricle is normal in size. The ejection fraction is estimated to be 65-70%. There has been no significant change in LV EF since the previous study. The right ventricle is normal in size and function. The mitral valve leaflets are moderately calcified. There is mild mitral stenosis. No significant mitral valve stenosis. There is mild mitral regurgitation. Compared to the prior echo study, there has been an increase in the severity of mitral regurgitation. Mild atherosclerotic plaque(s) in the aortic arch. Brief History This is a pleasant 68-year-old female with history of coronary artery disease and PCI 2 in the past. Her last angiogram was in 2011. Bedtime she had an obtuse marginal stented and an RCA was noted to be 80-90% stenosed but not stented. The last stress test was within the last 10 months and was unremarkable. The patient was recently admitted for fatigue and hypercalcemia. She was diagnosed with a possible presumptive gammopathy with workup pending. She was discharged 2 days ago with her calcium corrected. She also had hypomagnesemia and this was also corrected. The patient developed 2 episodes of chest pain last night which are transient. These were at rest. This morning she developed another episode of chest pressure with radiation up into the neck which was improved with 1 sublingual nitroglycerin. She had a second episode took another nitroglycerin and had partial improvement. Family learned of this and called 911. She had accompanying diaphoresis as well as radiation of pain to neck. The pain was not pleuritic. It was all anterior and posterior. The pain did not get worse with any particular movement. She was found in the emergency department to be uncomfortable but had normal vital signs. She did have ST depressions in lateral leads V3 6. She was started on nitro paste and heparin drip was ordered. She was given aspirin in route. Her pain improved for a short time but then began to start her again. A neck strain for up was ordered. She was given a Plavix load. She was given morphine. The ED physician was discussing the case with interventional anginal cardiology. She appears to be suffering from unstable angina versus early acute coronary syndrome. Hospital Course 1. Unstable angina, present on admission and active. Angiogram indicates multiple vessel disease which appears to be amenable to surgical approach but not PCI. We will discuss the best management plan with Dr. Flores over interventional cardiology. We will maintain her on heparin drip. Anticipate possible discharge to [facility] for cardiothoracic evaluation. 2. Hypertension, present on admission and improved. We will follow clinically as she has her nitroglycerin down titrated. 3. Dyslipidemia, present on admission and stable. Continue her statin. 4. Coronary artery disease, present on admission and likely active. Plan is as noted on item #1. 5. Hypomagnesemia, pleasant admission and improved. We will follow. 6. 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 Workup is pending. Patient is full resuscitation. Patient did well on heparin and nitroglycerin drips. On the evening of the third she had recurrent chest pain. Her nitro drip was increased. Dr. Flores discussed the case with Dr. Orellana in [place] cardiothoracic surgery. The plan is to transfer for cardiothoracic evaluation of her multivessel coronary artery disease. Exam Vital Signs (Last) Date Time Temp Pulse Resp B/P Pulse Ox O2 Delivery O2 Flow Rate FiO2 01/15/17 17:21 71 01/15/17 16:10 36.4 22 164/45 98 Room Air 01/14/17 14:58 2 Exam She was seen and examined on the day of discharge Test 01/14/17 14:00 01/14/17 21:15 01/15/17 00:01 01/15/17 05:55 Prothrombin Time 9.4sec (8.1-12.5) Prothromb Time International Ratio 0.88ratio D-Dimer 0.79mg/L FEU (<0.50) Total Creatine Kinase 42U/L (21-215) Creatine Kinase MB 2.2ng/mL (0.0-5.3) Creatine Kinase MB % % (0.0-5.0) Urine Color Straw (YELLOW) Urine Appearance Clear (CLEAR,HAZY) Urine pH 7.0 (5.0-8.0) Urine Specific [place] 1.016 (1.003-1.035) Urine Protein Negativemg/dL (NEG,TRACE) Urine Glucose (UA) Negativemg/dL (NEGATIVE) Urine Ketones Negativemg/dL (NEGATIVE) Urine Occult Blood Trace (NEGATIVE) Urine Nitrite Negative (NEGATIVE) Urine Bilirubin Negative (NEGATIVE) Urine Urobilinogen Normalmg/dL (NORMAL) Urine Leukocyte Esterase Negative (NEGATIVE) Urine RBC 0-2/hpf (0-2) Urine WBC 0-5/hpf (0-5) Urine Epithelial Cells Few/hpf (NONE-MOD) Urine Crystals None seen (NONE SEEN) Urine Bacteria Few/hpf (NONE-FEW) Urine Hyaline Casts None/lpf (NONE) Urine Granular Casts None seen (NONE SEEN) Urine Waxy Casts None seen (NONE SEEN) Urine Red Blood Cell Casts None seen (NONE SEEN) Urine White Blood Cell Casts None seen (NONE SEEN) Urine Mucus None seen (None Seen) Urine Trichomonas None seen (NONE SEEN) Urine Yeast None (NONE SEEN) Urinalysis Comment None Hold Urine Received (Received) Magnesium Level 1.9mg/dL (1.6-2.6) White Blood Count 12.2th/mm3 (3.8-10.1) Red Blood Count 3.01mil/mm3 (3.90-5.20) Hemoglobin 8.9g/dL (12.0-15.6) Hematocrit 26.8% (35.0-46.0) Mean Corpuscular Volume 89.0fL (81-100) Mean Corpuscular Hemoglobin 29.6pg (27.0-35.0) Mean Corpuscular Hemoglobin Concent 33.2% (32.0-37.0) Red Cell Distribution Width 14.2% (12.3-15.4) Platelet Count 258bil/L (150-400) Neutrophils (%) (Auto) 68.7% (40-74) Lymphocytes (%) (Auto) 15.3% (14-46) Monocytes (%) (Auto) 10.3% (4-12) Eosinophils (%) (Auto) 4.8% (0-5) Basophils (%) (Auto) 0.6% (0-3) Sodium Level 140mEq/L (134-144) Potassium Level 3.4mEq/L (3.5-5.2) Chloride Level 107mEq/L (97-108) Carbon Dioxide Level 17mmol/L (18-29) Blood Urea Nitrogen 17mg/dL (8-27) Creatinine 0.86mg/dL (0.57-1.00) Estimat Glomerular Filtration Rate 91mL/min (>59) Glucose Level 109mg/dL (60-99) Calcium Level 8.2mg/dL (8.5-10.1) Total Bilirubin 0.2mg/dL (0.0-1.2) Aspartate Amino Transf (AST/SGOT) 55U/L (0-50) Alanine Aminotransferase (ALT/SGPT) 50U/L (0-32) Alkaline Phosphatase 47U/L (25-165) Troponin T 0.114ug/L (0.0-0.011) Total Protein 6.0g/dL (6.4-8.4) Albumin 2.9g/dL (3.4-5.0) Test 01/15/17 12:50 Activated Partial Thromboplast Time 36.4sec (22.8-33.0) Discharge Medications Discharge Medications Aspirin Chew (Aspirin Chew) 81 Mg Chew 81 MG PO HS (Reported) Atorvastatin (Lipitor) 40 Mg Tablet 40 MG PO HS (Reported) Carvedilol (Carvedilol) 6.25 Mg Tablet 6.25 MG PO BID Prescribed by: AURELIA MCCONNELL DO Clopidogrel (Clopidogrel) 75 Mg Tablet 75 MG PO QAM (Reported) Losartan Potassium (Losartan Potassium) 50 Mg Tablet 50 MG PO QAM (Reported) Magnesium Oxide (Magnesium) 400 Mg Capsule 400 MG PO DAILY Prescribed by: AURELIA MCCONNELL DO Multivitamin (Multi Vitamin Daily) 1 Each Tablet 1 EACH PO QAM (Reported) Nortriptyline (Nortriptyline) 25 Mg Capsule 25 MG PO EVERY OTHER NIGHT (Reported ) PATIENT TITRATING OFF THIS MEDICATION Potassium Chloride (Potassium Chloride) 20 Meq Tab.er.prt 20 MEQ PO BID TAKE WITH FOOD Prescribed by: AURELIA MCCONNELL DO Tramadol (Tramadol) 50 Mg Tablet 50 MG PO HS (Reported) PT TITRATING OFF THIS MED As needed Naproxen Sodium (Naproxen Sodium) 220 Mg Capsule 220 MG PO BID PRN PRN SHOULDER PAIN (Reported) Nitroglycerin (Nitroglycerin) 0.3 Mg Tab.subl 0.3 MG SL Q5MIN PRN PRN For Chest Pain (Reported) diphenhydrAMINE HCl (Benadryl) 25 Mg Capsule 25 MG PO DAILY PRN PRN ALLERGIES ( Reported) Followup Plan Disposition: Transfer to [facility] Time spent 40 minutes Sudhir Shaw MD Jan 15, 2017 19:11
[2017-01-15] MEDS ORDERED: LORazepam 1 mg Tablet PO PRN (19:55)
[2017-01-15 19:57] LABS: Creatine Kinase 51 U/L (21-215)
[2017-01-15 20:00] LABS: TROPONIN T 0.066 ug/L (0.0-0.011)
[2017-01-15] MEDS: Nitroglycerin 50 mg/250 mL D5W Premix IV SCH (20:06)
--- NOTE | 2017-01-15 22:28 | PROG NOTE ---
[address] [address] PROGRESS NOTE PATIENT: HENOK CHU : 1940 MR#: [id number] ADMIT: 01/14/2017 JOB ID: [id number] DATE: Sunday, January 15, 2017 CARDIOLOGY CONSULTATION PROGRESS NOTE/FOLLOWUP INPATIENT VISIT: CONSULTING PHYSICIAN: Cardiology; Demar Flores MD PROBLEMS: 1. Acute coronary syndrome (ACS): a. Chest pain. b. Elevated troponin. c. NSTEMI. 2. Workup for possible malignancy: a. Just discharged after recent admission for hypercalcemia (calcium 15). b. Monoclonal gammopathy: Consider multiple myeloma. c. History of right breast cancer: No documented recurrence after lumpectomy and right radiation treatment. d. Current smoker. HOSPITAL COURSE AND INTERIM PROGRESS: HOSPITAL DAY THREE: I was glad to see the patient along with her son and later her daughter on cardiology rounds and several followup visits today, Sunday, January 15, 2017. In summary, she was admitted with ongoing chest pain that stabilized with aggressive medical therapy including IV heparin, IV nitroglycerin, aspirin, Plavix, beta-cindi. She underwent catheterization yesterday that revealed a subtotal proximal circumflex lesion, the patent OM stent distal to the circumflex lesion, and distal left main disease as well as severe diffuse RCA disease. Today, she was entirely stable without any chest discomfort on very low dose NTG 5 mcg/minute. She had good hydration and urine output after the cath. Her RFA site was fully intact with only minor ecchymosis. This evening, while dragging the bedside commode across the room, she had a transient episode of chest discomfort. At that time, the ECG was not definitely changed, but there was possible subtle ST flattening at that time. She had another brief episode of chest discomfort during emotional stress, talking with her family paying some bills. Overall, she has been clinically stable. Her NTG IV has been up-titrated. Also during the day, I spoke with CT surgery at [facility] (Dr. Orellana) by way of "heart team approach" considering CAD or PCI. OBJECTIVE: Examination: Vital signs stable with strong blood pressure 179/64 with adequate heart rate 70-86. RLE: Right lower extremity intact at the catheterization site without much tenderness. Minor ecchymosis. No hematoma, pulsatile mass or bruit. Intact distal perfusion/pulses. ELECTROCARDIOGRAM: On medical therapy and after the catheterization last night, she had resolution of the dynamic marked horizontal ST depression that was present on admission. LABORATORY: Labs remain intact. Note hemoglobin 10.1 now 8.9 with creatinine stable lower, 0.86, after hydration. Calcium low, 8.2. Cardiac markers include total CK not elevated, 51, with CK-MB not elevated, 3.3, and troponin initially less than 0.010 at the time of the admission then batool to 0.015, then 0.114, now down trending 0.066. Echocardiogram: Echo done today shows normal LV size with vigorous LV global systolic function with ejection fraction 65-70%. There are no definite focal wall motion abnormalities, but there may be some mild inferolateral hypokinesis referable to her circumflex lesion. ASSESSMENT: I discussed the findings, impressions, and management considerations with the patient, her son, daughter, as well as the Hospitalist Service (Drs. Shaw, Janet, and Krista) and CT surgery at [facility] (Dr. Orellana) including: Acute coronary syndrome with non ST elevation myocardial infarction: She remains stable on medical therapy but has had mild transient recurrent chest discomfort. After discussion, consideration of coronary bypass is not favorable given her uncertain diagnosis regarding malignancy. Also to consider interventional approach, although this will be technically difficult and high risk. I discussed all this with the patient and her family. She care she understands, and given the severe nature of her coronary disease, she wants to proceed with interventional approach. We, again, discussed the procedure including possible risks, complications, as well as risks, benefits, alternatives, along the lines of our discussion last night. After questions and discussion, she signed informed consent to proceed in the morning. RECOMMENDATIONS: 1. Optimal medical therapy: Up-titrate NTG IV as needed and up-titrate metoprolol as needed including add metoprolol 25 p.o. short-acting q.6 as tolerated. 2. Plan PCI in a.m. or earlier if she becomes unstable. 3. Your plan to work as aggressively as possible to complete her malignancy workup as quickly as possible including recommend oncology consultation this weekend and their recommendations for definitive workup including consideration of a bone marrow biopsy per their plan.
[2017-01-16 00:08] VITALS: BP 127/53; PULSE 70; RESP 16; O2SAT 97
[2017-01-16] MEDS ORDERED: Sodium Chloride LOK Flush 10 mL Syringe IVFLUSH SCH (00:30)
--- NOTE | 2017-01-16 00:51 | NUR ---
CP / plan / anxiety Patient had episode of chest pain just after change of shift. Morphine given x2 and Nitro gtt is titrated up to 50mcgs/min. Complete resolution of chest pain after this. MD at bedside discussing plan of care, decision made not to transfer but to take patient to labeling associate again tomorrow for angioplasty. Consent signed. NPO at midnight. Patient very prior to chest pain and during. MD updated and orders received for PO Ativan. Dose given at HS and patient appears calm and is able to fall asleep. Heparin gtt infusing.
[2017-01-16] MEDS: Heparin 25K Unit/500mL 0.45 NS 25,000 UNIT in IV Premix 1 EACH IV SCH (03:48)
[2017-01-16 03:49] VITALS: BP 126/52; PULSE 69; RESP 26; O2SAT 98
[2017-01-16] MEDS ORDERED: 0.9% Sodium Chloride 1,000 ML IV ONE (06:00)
[2017-01-16 06:26] LABS: BASOPHILS % (AUTO) 0.4 % (0-3); EOSINOPHILS % (AUTO) 4.6 % (0-5); MONOCYTES % (AUTO) 11.7 % (4-12); Mean Corpuscular Hemoglobin 29.8 pg (27.0-35.0); Mean Corpuscular Volume 89.4 fL (81-100); NEUTROPHILS % (AUTO) 64.8 % (40-74); Platelet Count 245 bil/L (150-400)
[2017-01-16 07:06] LABS: Creatine Kinase 35 U/L (21-215)
[2017-01-16 07:09] LABS: TROPONIN T 0.043 ug/L (0.0-0.011)
[2017-01-16 08:00] VITALS: BP 138/44; PULSE 58; RESP 22; O2SAT 98
[2017-01-16] MEDS: Heparin Protocol Boluses IVPUSH PRN (08:07)
[2017-01-16] MEDS: MeTOProlol XL 50 mg ER24 Tablet PO SCH (08:11)
[2017-01-16 12:00] VITALS: BP 140/95; PULSE 62; RESP 22; O2SAT 98
[2017-01-16] MEDS: Nitroglycerin 50 mg/250 mL D5W Premix IV SCH (12:44)
--- NOTE | 2017-01-16 12:48 | NUR ---
Calm, cooperative, oriented. Reports "slept well" after ativan last night. Pain free. SR/SB without ectopy, blood pressures 120-140 over 40's with MAP 71-100 on NTG gtt at 50mcg. Right groin FA puncture site with slight bloody ooze, dressing changed x2 today. distal pulses weak but intact. LS clear, sats 98% on RA. Up to BSC with SBA, no distress or discomfort with activity. NPO since midnight. Awaiting ACLS transport to [facility] for cardiac intervention. Purse and belongings home with sister Madeline. Family notification will also be passed on by Madeline.
--- NOTE | 2017-01-16 13:00 | PCM.DC.MED ---
Discharge Summary Date of Service Jan 16, 2017 Dates of Hospitalization Date of Hospital Admission Jan 14, 2017 at 16:28 Date of Discharge: Jan 16, 2017 Providers: Admitting Physician: Sudhir Shaw MD Primary Care Physician: Joey Duran DO Attending Physician: Sudhir Shaw MD Diagnosis at Time of Discharge Diagnosis at Time of Discharge 1. Unstable angina, present on admission and active. Angiogram indicates multiple vessel disease which appears to be amenable to surgical approach but not PCI. We will discuss the best management plan with Dr. Flores over interventional cardiology. We will maintain her on heparin drip. Anticipate possible discharge to [facility] for cardiothoracic evaluation. 2. Hypertension, present on admission and improved. We will follow clinically as she has her nitroglycerin down titrated. 3. Dyslipidemia, present on admission and stable. Continue her statin. 4. Coronary artery disease, present on admission and likely active. Plan is as noted on item #1. 5. Hypomagnesemia, pleasant admission and improved. We will follow. 6. 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 Workup is pending. Consultations Dr. Flores, interventional cardiology Procedures XRay, CTs & MRIs Chest x-ray is unremarkable ECG 12 Lead ECG reveals normal sinus rhythm with ST depressions in leads V34 and 5 Cardiac Echo Impression Echocardiogram Report Name: HENOK CHU SStudy Date : 01/15/2017 Height: 65 in Hospital Exam Location: [facility] Weight: 137 lb Gender: Female BSA: 1.7 m2 : 1940 Age: 76 yrs BP: 143/53 mm Hg Reason For Study: Angina Ordering Physician: HOSPITALIST [facility] Performed By: Freida Baltazar Referring Physician: Shane Rivas Interpretation Summary The left ventricle is normal in size. The ejection fraction is estimated to be 65-70%. There has been no significant change in LV EF since the previous study. The right ventricle is normal in size and function. The mitral valve leaflets are moderately calcified. There is mild mitral stenosis. No significant mitral valve stenosis. There is mild mitral regurgitation. Compared to the prior echo study, there has been an increase in the severity of mitral regurgitation. Mild atherosclerotic plaque(s) in the aortic arch. Brief History This is a pleasant 68-year-old female with history of coronary artery disease and PCI 2 in the past. Her last angiogram was in 2011. Bedtime she had an obtuse marginal stented and an RCA was noted to be 80-90% stenosed but not stented. The last stress test was within the last 10 months and was unremarkable. The patient was recently admitted for fatigue and hypercalcemia. She was diagnosed with a possible presumptive gammopathy with workup pending. She was discharged 2 days ago with her calcium corrected. She also had hypomagnesemia and this was also corrected. The patient developed 2 episodes of chest pain last night which are transient. These were at rest. This morning she developed another episode of chest pressure with radiation up into the neck which was improved with 1 sublingual nitroglycerin. She had a second episode took another nitroglycerin and had partial improvement. Family learned of this and called 911. She had accompanying diaphoresis as well as radiation of pain to neck. The pain was not pleuritic. It was all anterior and posterior. The pain did not get worse with any particular movement. She was found in the emergency department to be uncomfortable but had normal vital signs. She did have ST depressions in lateral leads V3 6. She was started on nitro paste and heparin drip was ordered. She was given aspirin in route. Her pain improved for a short time but then began to start her again. A neck strain for up was ordered. She was given a Plavix load. She was given morphine. The ED physician was discussing the case with interventional anginal cardiology. She appears to be suffering from unstable angina versus early acute coronary syndrome. Hospital Course 1. Unstable angina, present on admission and active. Angiogram indicates multiple vessel disease which appears to be amenable to surgical approach but not PCI. We will discuss the best management plan with Dr. Flores over interventional cardiology. We will maintain her on heparin drip. Anticipate possible discharge to [facility] for cardiothoracic evaluation. 2. Hypertension, present on admission and improved. We will follow clinically as she has her nitroglycerin down titrated. 3. Dyslipidemia, present on admission and stable. Continue her statin. 4. Coronary artery disease, present on admission and likely active. Plan is as noted on item #1. 5. Hypomagnesemia, pleasant admission and improved. We will follow. 6. 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 Workup is pending. Patient is full resuscitation. Patient did well on heparin and nitroglycerin drips. On the evening of the third she had recurrent chest pain. Her nitro drip was increased. Dr. Flores discussed the case with Dr. Orellana in [place] cardiothoracic surgery. The plan is to transfer for cardiothoracic evaluation of her multivessel coronary artery disease. The patient was initially going to be transferred to [place] on the evening of January 15, however this was delayed until the afternoon of January 16. Interval summary. The patient had no difficulty with chest pain over the evening and night of January 15-. In the morning January 16 she was feeling well. She denied any difficulties with chest pain or dyspnea. Lungs were clear , heart was regular without murmur gallop or rub Extremities are free of edema. Exam Vital Signs (Last) Date Time Temp Pulse Resp B/P Pulse Ox O2 Delivery O2 Flow Rate FiO2 01/16/17 08:00 36.7 58 22 138/44 98 Room Air 01/14/17 14:58 2 Exam Alert oriented 3. No distress. Her fluid speech. Lungs were clear to auscultation with normal effort. Heart was regular without murmur or gallop Abdomen soft nontender Extremities free of edema. Test 01/14/17 14:00 01/14/17 21:15 01/15/17 00:01 01/15/17 05:55 Prothrombin Time 9.4sec (8.1-12.5) Prothromb Time International Ratio 0.88ratio D-Dimer 0.79mg/L FEU (<0.50) Urine Color Straw (YELLOW) Urine Appearance Clear (CLEAR,HAZY) Urine pH 7.0 (5.0-8.0) Urine Specific [place] 1.016 (1.003-1.035) Urine Protein Negativemg/dL (NEG,TRACE) Urine Glucose (UA) Negativemg/dL (NEGATIVE) Urine Ketones Negativemg/dL (NEGATIVE) Urine Occult Blood Trace (NEGATIVE) Urine Nitrite Negative (NEGATIVE) Urine Bilirubin Negative (NEGATIVE) Urine Urobilinogen Normalmg/dL (NORMAL) Urine Leukocyte Esterase Negative (NEGATIVE) Urine RBC 0-2/hpf (0-2) Urine WBC 0-5/hpf (0-5) Urine Epithelial Cells Few/hpf (NONE-MOD) Urine Crystals None seen (NONE SEEN) Urine Bacteria Few/hpf (NONE-FEW) Urine Hyaline Casts None/lpf (NONE) Urine Granular Casts None seen (NONE SEEN) Urine Waxy Casts None seen (NONE SEEN) Urine Red Blood Cell Casts None seen (NONE SEEN) Urine White Blood Cell Casts None seen (NONE SEEN) Urine Mucus None seen (None Seen) Urine Trichomonas None seen (NONE SEEN) Urine Yeast None (NONE SEEN) Urinalysis Comment None Hold Urine Received (Received) Magnesium Level 1.9mg/dL (1.6-2.6) Total Bilirubin 0.2mg/dL (0.0-1.2) Aspartate Amino Transf (AST/SGOT) 55U/L (0-50) Alanine Aminotransferase (ALT/SGPT) 50U/L (0-32) Alkaline Phosphatase 47U/L (25-165) Total Protein 6.0g/dL (6.4-8.4) Albumin 2.9g/dL (3.4-5.0) Test 01/16/17 05:45 White Blood Count 12.4th/mm3 (3.8-10.1) Red Blood Count 2.65mil/mm3 (3.90-5.20) Hemoglobin 7.9g/dL (12.0-15.6) Hematocrit 23.7% (35.0-46.0) Mean Corpuscular Volume 89.4fL (81-100) Mean Corpuscular Hemoglobin 29.8pg (27.0-35.0) Mean Corpuscular Hemoglobin Concent 33.3% (32.0-37.0) Red Cell Distribution Width 14.1% (12.3-15.4) Platelet Count 245bil/L (150-400) Neutrophils (%) (Auto) 64.8% (40-74) Lymphocytes (%) (Auto) 18.2% (14-46) Monocytes (%) (Auto) 11.7% (4-12) Eosinophils (%) (Auto) 4.6% (0-5) Basophils (%) (Auto) 0.4% (0-3) Activated Partial Thromboplast Time 43.9sec (22.8-33.0) Sodium Level 137mEq/L (134-144) Potassium Level 4.0mEq/L (3.5-5.2) Chloride Level 106mEq/L (97-108) Carbon Dioxide Level 17mmol/L (18-29) Blood Urea Nitrogen 21mg/dL (8-27) Creatinine 1.14mg/dL (0.57-1.00) Estimat Glomerular Filtration Rate 66mL/min (>59) Glucose Level 105mg/dL (60-99) Calcium Level 8.1mg/dL (8.5-10.1) Total Creatine Kinase 35U/L (21-215) Creatine Kinase MB 2.4ng/mL (0.0-5.3) Creatine Kinase MB % % (0.0-5.0) Troponin T 0.043ug/L (0.0-0.011) Discharge Medications Discharge Medications Aspirin Chew (Aspirin Chew) 81 Mg Chew 81 MG PO HS (Reported) Atorvastatin (Lipitor) 40 Mg Tablet 40 MG PO HS (Reported) Carvedilol (Carvedilol) 6.25 Mg Tablet 6.25 MG PO BID Prescribed by: AURELIA MCCONNELL DO Clopidogrel (Clopidogrel) 75 Mg Tablet 75 MG PO QAM (Reported) Losartan Potassium (Losartan Potassium) 50 Mg Tablet 50 MG PO QAM (Reported) Magnesium Oxide (Magnesium) 400 Mg Capsule 400 MG PO DAILY Prescribed by: AURELIA MCCONNELL DO Multivitamin (Multi Vitamin Daily) 1 Each Tablet 1 EACH PO QAM (Reported) Nortriptyline (Nortriptyline) 25 Mg Capsule 25 MG PO EVERY OTHER NIGHT (Reported ) PATIENT TITRATING OFF THIS MEDICATION Potassium Chloride (Potassium Chloride) 20 Meq Tab.er.prt 20 MEQ PO BID TAKE WITH FOOD Prescribed by: AURELIA MCCONNELL DO Tramadol (Tramadol) 50 Mg Tablet 50 MG PO HS (Reported) PT TITRATING OFF THIS MED As needed Naproxen Sodium (Naproxen Sodium) 220 Mg Capsule 220 MG PO BID PRN PRN SHOULDER PAIN (Reported) Nitroglycerin (Nitroglycerin) 0.3 Mg Tab.subl 0.3 MG SL Q5MIN PRN PRN For Chest Pain (Reported) diphenhydrAMINE HCl (Benadryl) 25 Mg Capsule 25 MG PO DAILY PRN PRN ALLERGIES ( Reported) Followup Plan Disposition: Transfer to Located Within [facility] for consideration of high risk percutaneous coronary intervention versus bypass surgery Time spent 50 minutes Sudhir Shaw MD Jan 16, 2017 13:00
--- NOTE | 2017-01-16 13:08 | NUR ---
Report to Lavonne ROMANO at [facility].
--- NOTE | 2017-01-16 14:21 | NUR ---
Correction, purse and cell phone remain at bedside and have been sent along with patient at time of discharge/transfer.
--- NOTE | 2017-01-16 16:13 | NUR ---
Social Work: Discharge Data: EMR reviewed. Patient is on day 2 of hospitalization for unstable angina per H&P. Patient discussed in morning rounds. Patient has been deemed medically stable for transfer. Patient will be transferred to [place] for further medical care. Transportation will provided by EMS. Patient has no additional needs at this time. Assessment: Patient will transfer to [facility]. Plan: Patient will transfer to [facility] today. Transportation will be provided by EMS. Patient has no additional needs at this time. CHELSEA Cole
--- NOTE | 2017-01-16 16:24 | PROG NOTE ---
[address] [address] PROGRESS NOTE PATIENT: HENOK CHU : 1940 MR#: [id number] ADMIT: 01/14/2017 JOB ID: [id number] DATE: 01/16/2017 CARDIOLOGY CONSULTATION PROGRESS NOTE--FOLLOWUP INPATIENT VISIT: DATE OF EVALUATION: Monday, January 16, 2017. CONSULTING PHYSICIAN: Cardiology--Demar Flores MD. PROBLEMS: 1. ACS--NSTEMI. 2. CAD--multi-vessel CAD including new severe proximal LCX lesion (possible culprit lesion for her current unstable symptoms); and new LMCA/ostial LCX lesion; and severe diffuse chronic RCA disease; and intact prior stent of ostial OM. 3. Workup for malignancy--ongoing evaluation after recent admission for hypercalcemia; and finding of monoclonal protein. INTERVAL HISTORY AND PROGRESS: Hospital day four. I was glad to see this 76-year-old woman on Cardiology rounds this morning, along with the hospitalist team (Dr. Shaw); and her family. In summary of her course, since yesterday: She was stable throughout most of yesterday, without recurrent discomfort. Then yesterday evening she had a brief but clear-cut episode of angina while getting out of bed and dragging the bedside commode across the room. She had at least one or two other episodes that were brief and quickly controlled. She is on intense medical therapy; and NTG IV has been up-titrated to 50 mcg. She is currently stable. OBJECTIVE: Vital signs stable with systolic pressure 140/95. LABORATORY: Note decreasing hemoglobin 10.1 on admission--then 8.9; now 7.9, with intact platelet count 245,000. Chemistries satisfactory including creatinine 1.14. Serial cardiac markers include total CK not elevated, 35, with downtrending troponin now 0.043. ECG: The followup ECGs have showed resolution of her initial dynamic deep horizontal lateral ST depression. There was only subtle possible ST sagging transiently at the time of her chest discomfort yesterday evening. ASSESSMENT: I discussed the findings, impressions, and management considerations with her and her family; as well as with the hospitalist team (Dr. Shaw); and with CT surgery at [facility] (Dr. Orellana) includin. Acute coronary syndrome: She has severe angina that has been active with minimal exertion (functional class IV). She is overall clinically stable, however, on a moderate dose NTG IV; and ASA; and chronic Plavix; and metoprolol uptitrated; and heparin IV infusion. The overall impression is ACS with severe symptoms due to underlying multi-vessel CAD. We discussed among Interventional Cardiology and with CT Surgery regarding options for this woman especially with the complicating comorbidity of her recent severe symptomatic hypercalcemia that led to consideration of underlying malignancy in the presence of her prior previously inactive treated breast cancer; and her smoking; and finding of monoclonal gammopathy that raised the question of multiple myeloma. Ultimately, we plan transfer now to [facility] for consideration of best method to address her urgently needed revascularization. She is a poor surgical candidate especially with malignancy workup not completed; and she is a difficult interventional candidate given the high risk nature of her complex coronary disease with heavy calcification of the distal left main ostial LCX and proximal LCX. We discussed all this with her and her family. They understand the severity of her illness, the difficulty of her prognosis and the high risk of interventions going forward. At the same time, I was optimistic that we have a good understanding of her problems and can address the issues as best as possible. RECOMMENDATIONS: 1. Transfer now to [facility] (Dr. Orellana). 2. Continue aggressive maximal medical antianginal therapy and therapy for her coronary disease. 3. Early coronary revascularization. 4. Urgently pursue oncology workup.
== END 2017-01-16 14:23 | DRG 281 ==
LOC: SED 14:22 → OBSVTOIN 16:28 → PCC 16:28 → CCU 01-15 04:00 → PCC 01-15 15:40 → CCU 01-15 19:06
PROVIDERS: ADMIT Hospitalist; ATTEND Hospitalist
PROC: 4A023N7 Measurement of Cardiac Sampling and Pressure, Left Heart, Percutaneous Approach (ICD-10-PCS; principal; 2017-01-14)
PROC: B2111ZZ Fluoroscopy of Multiple Coronary Arteries using Low Osmolar Contrast (ICD-10-PCS; 2017-01-14)
DX: I25.110 Atherosclerotic heart disease of native coronary artery with unstable angina pectoris (principal); I21.4 Non-ST elevation (NSTEMI) myocardial infarction; I10 Essential (primary) hypertension; E78.5 Hyperlipidemia, unspecified; F17.200 Nicotine dependence, unspecified, uncomplicated; E83.42 Hypomagnesemia; I73.9 Peripheral vascular disease, unspecified; D47.2 Monoclonal gammopathy; Z85.3 Personal history of malignant neoplasm of breast; Z79.82 Long term (current) use of aspirin; Z95.1 Presence of aortocoronary bypass graft